=== PATIENT | male | born 1935 | race Caucasian/White ===

== ENCOUNTER 2018-12-18 16:03 | Inpatient (IN) | payer MEDICARE, BC | END 2018-12-23 12:27 | disposition home health service (06) | LOC: ER 16:03 → PCU 3S 12-19 07:30 → ED HOLD 20:53 | PROC: 0F798DZ Dilation of Common Bile Duct with Intraluminal Device, Via Natural or Artificial Opening Endoscopic (ICD-10-PCS; principal; 2018-12-19 13:55) | DX: K80.50 Calculus of bile duct without cholangitis or cholecystitis without obstruction (principal); I21.4 Non-ST elevation (NSTEMI) myocardial infarction ==

== ENCOUNTER 2019-06-16 20:38 | Inpatient (IN) | payer MEDICARE, BC ==
[~2019-06-16] VITALS: Ht 198.1 cm; Wt 100.0 kg
[~2019-06-16 20:38] MED LIST: ASPI-1071 PO; CLOP75TA15 PO; DIAZ5TAB4 PO; DOCU-28 PO; HYDR-3972 PO; INSU100I8 SQ; LANTUS SQ; LEVO200T8 PO; METF-438 PO; METO200T49 PO; OMEP20TA5 PO; TAMS0.4C32 PO; VENL75TA4 PO
[2019-06-16] MEDS ORDERED: normal saline 1000ml 1,000 ML IV ONE (20:44)
[2019-06-16] MEDS ORDERED: vancomycin/NS 1 GM ADD-VANTAGE 250 ML IV ONE (20:45)
[2019-06-16] MEDS ORDERED: ASPI-1264 PO (21:03)
[2019-06-16] MEDS ORDERED: METO-395 PO (21:11)
[2019-06-16] MEDS ORDERED: VENL75TA4 PO (21:11)
[2019-06-16] MEDS ORDERED: SYN0.088T PO ×2 (21:11→21:16)
[2019-06-16] MEDS ORDERED: ATOR40TA7 PO (21:14)
[2019-06-16 21:18] LABS: BASOPHILS % (AUTO) 0.9 % (0-1); EOSINOPHILS # (AUTO) 0.1 X10'3 (0-0.9); EOSINOPHILS % (AUTO) 1.9 % (0-6); HEMATOCRIT 25.3 % (42.0-52.0); HEMOGLOBIN 8.7 g/dl (14.0-17.9); LYMPHOCYTES # (AUTO) 1.1 X10'3 (1.1-4.8); LYMPHOCYTES % (AUTO) 19.9 % (21-51); MEAN CORPUSCULAR HEMOGLOBIN 28.3 PG (27.0-31.0); MEAN CORPUSCULAR HGB CONC 34.5 g/dL (33.0-36.5); MEAN CORPUSCULAR VOLUME 81.9 FL (78-98); MEAN PLATELET VOLUME 7.6 FL (7.4-10.4); MONOCYTES # (AUTO) 0.9 X10'3 (0-0.9); MONOCYTES % (AUTO) 16.6 % (2-12); NEUTROPHILS # (AUTO) 3.3 X10'3 (1.8-7.7); NEUTROPHILS % (AUTO) 60.7 % (42-75); PLATELET COUNT 222 X10'3 (140-440); RED BLOOD COUNT 3.09 X10'6 (4.70-6.10); RED CELL DISTRIBUTION WIDTH 16.7 % (11.5-14.5); WHITE BLOOD COUNT 5.5 X10'3 (4.5-11.0)
[2019-06-16 21:25] LABS: ALANINE AMINOTRANSFERASE 18 U/L (12-78); ALBUMIN 2.7 G/DL (3.4-5.0); ALBUMIN/GLOBULIN RATIO 0.6 (1.1-1.5); ALKALINE PHOSPHATASE 132 IU/L (46-116); ANION GAP 10 (8-16); ASPARTATE AMINO TRANSFERASE 15 U/L (10-37); BILIRUBIN,TOTAL 0.7 MG/DL (0.1-1.0); BLOOD UREA NITROGEN 18 MG/DL (7-18); BUN/CREATININE RATIO 19.4 (5.4-32.0); CALCIUM 8.7 MG/DL (8.5-10.1); CHLORIDE 103 MMOL/L (99-107); CREATININE 0.93 MG/DL (0.60-1.10); GLUCOSE 175 MG/DL (70-104); MAGNESIUM 1.9 MG/DL (1.5-2.4); POTASSIUM 3.7 MMOL/L (3.5-5.1); SODIUM 136 MMOL/L (135-145); TOTAL CARBON DIOXIDE 23.2 MMOL/L (24-32); TOTAL PROTEIN 7.1 G/DL (6.4-8.2); eGFR 78 ML/MIN
[2019-06-16 21:28] LABS: D-DIMER 0.77 MG/L FEU (0-0.50); PARTIAL THROMBOPLASTIN TIME 32 SECONDS (22-32)
[2019-06-16] MEDS ORDERED: normal saline 1000ML IV soln IVB ONE (21:50)
--- NOTE | 2019-06-16 21:57 | NUR ---
public health sanitarian technician at bedside.
[2019-06-16] MEDS: normal saline 1000ml 1,000 ML IV SCH (22:41)
[2019-06-16] MEDS ORDERED: magnesium hydroxide 30ml (MOM) UD suspension PO PRN (22:45)
[2019-06-16] MEDS ORDERED: ondansetron/PF 4mg/2ml inj IV PRN (22:45)
[2019-06-16] MEDS ORDERED: glucagon, human recombinant 1mg kit SUBCUT PRN (22:45)
[2019-06-16] MEDS ORDERED: dextrose 50%-water 50ml dispensing syringe IV PRN ×2 (22:45)
[2019-06-16] MEDS ORDERED: dextrose ORAL solution 15 GM/59 ML bottle PO PRN ×2 (22:45)
[2019-06-16] MEDS ORDERED: HYDROcodone/acetaminophen 10/325mg tab PO PRN (22:45)
[2019-06-16] MEDS ORDERED: acetaminophen 325mg tablet PO PRN ×2 (22:45)
[2019-06-16] MEDS ORDERED: insulin Lispro (HumaLOG) vial - multi-dose SQ SCH (22:45)
[2019-06-16] MEDS ORDERED: mag hydrox/Alum hydrox/simeth 30ml oral suspension PO PRN (22:45)
[2019-06-16] MEDS ORDERED: MESSAGE TO PHARMACY PO ONE (22:45)
[2019-06-16 23:11] LABS: HEMOGLOBIN A1C 5.8 % (4.5-6.2)
[2019-06-16] MEDS: CefTRIAXone/D5W-Rocephin 1gm 50 ML IV SCH ×2 (23:15→23:16)
[2019-06-17] VITALS: BP 129/71
[2019-06-17] MEDS: HYDROcodone/acetaminophen 5mg/325mg tablet PO PRN ×2 (00:11→12:46)
[2019-06-17] MEDS: CefTRIAXone/D5W-Rocephin 1gm 50 ML IV SCH (00:15)
[2019-06-17 05:56] LABS: EOSINOPHILS # (AUTO) 0.1 X10'3 (0-0.9); EOSINOPHILS % (AUTO) 2.3 % (0-6); HEMOGLOBIN 7.6 g/dl (14.0-17.9); LYMPHOCYTES # (AUTO) 0.8 X10'3 (1.1-4.8); LYMPHOCYTES % (AUTO) 16.7 % (21-51); MEAN CORPUSCULAR HEMOGLOBIN 28.7 PG (27.0-31.0); MEAN CORPUSCULAR HGB CONC 34.8 g/dL (33.0-36.5); MEAN CORPUSCULAR VOLUME 82.3 FL (78-98); MEAN PLATELET VOLUME 7.5 FL (7.4-10.4); MONOCYTES # (AUTO) 0.7 X10'3 (0-0.9); MONOCYTES % (AUTO) 14.9 % (2-12); NEUTROPHILS % (AUTO) 65.1 % (42-75); PLATELET COUNT 189 X10'3 (140-440); RED BLOOD COUNT 2.67 X10'6 (4.70-6.10); RED CELL DISTRIBUTION WIDTH 16.6 % (11.5-14.5); WHITE BLOOD COUNT 4.6 X10'3 (4.5-11.0)
[2019-06-17 06:00] VITALS: BP 124/64
--- NOTE | 2019-06-17 06:00 | NUR ---
Patient in room BILL 354. I have received report from Karly LABOY and had the opportunity to ask questions and assume patient care.
[2019-06-17 06:15] LABS: ALBUMIN 2.3 G/DL (3.4-5.0); ANION GAP 12 (8-16); BLOOD UREA NITROGEN 16 MG/DL (7-18); BUN/CREATININE RATIO 20.5 (5.4-32.0); CHLORIDE 106 MMOL/L (99-107); CREATININE 0.78 MG/DL (0.60-1.10); GLUCOSE 121 MG/DL (70-104); POTASSIUM 3.4 MMOL/L (3.5-5.1); SODIUM 140 MMOL/L (135-145); TOTAL CARBON DIOXIDE 21.7 MMOL/L (24-32); eGFR > 90 ML/MIN
[2019-06-17] MEDS: metoprolol succinate 25mg (24-HOUR) SR. Tablet PO SCH (07:58)
[2019-06-17] MEDS: metFORMIN 500mg tablet PO SCH ×2 (07:58→20:04)
[2019-06-17] MEDS: levoTHYROXINE 75mcg tablet PO SCH (07:59)
[2019-06-17] MEDS: pantoprazole 40mg Tablet.DR PO SCH ×2 (07:59→20:04)
[2019-06-17] MEDS: enoxaparin 30mg/0.3ml syringe SUBCUT SCH ×2 (08:00→12:43)
[2019-06-17] MEDS: clopidogrel 75mg tablet PO SCH ×2 (08:00→12:42)
[2019-06-17] MEDS: aspirin 325mg tablet PO SCH ×2 (08:00→12:42)
[2019-06-17] MEDS: VANCOmycin 1250MG/NS 250ml Bag 250 ML IV SCH ×2 (08:00→19:49)
[2019-06-17] MEDS: normal saline 1000ml 1,000 ML IV SCH ×2 (08:41→18:42)
[2019-06-17] MEDS: venlafaxine 37.5mg tablet PO SCH ×2 (09:55→20:04)
--- NOTE | 2019-06-17 10:07 | NUR ---
Meds held D/T Hct 22.0 Dr Talley was notified.
[2019-06-17] MEDS ORDERED: magnesium 4gm in 100ml NS 100 ML IV PRN (11:00)
[2019-06-17] MEDS ORDERED: potassium Cl 20 mEq SR tablet PO PRN (11:00)
[2019-06-17] MEDS ORDERED: potassium CL 10mEq/100ml bag 100 ML IV PRN (11:00)
[2019-06-17] MEDS ORDERED: magnesium Cl slow-release 64mg tablet PO PRN (11:00)
[2019-06-17] MEDS ORDERED: magnesium 2GM in 50ml NS 50 ML IV PRN (11:00)
[2019-06-17 11:18] VITALS: BP 137/71
[2019-06-17] MEDS: potassium Cl 20 mEq SR tablet PO PRN (14:30)
--- NOTE | 2019-06-17 18:26 | NUR ---
Problems reprioritized. Patient report given, questions answered & plan of care reviewed with Prudence RN.
--- NOTE | 2019-06-17 18:35 | NUR ---
Patient in room BILL 354. I have received report from García LABOY and had the opportunity to ask questions and assume patient care.
[2019-06-17 19:00] VITALS: BP 115/57
[2019-06-17] MEDS: lactobacillus rhamnosus 10,000 MMU CELLS/CAPSULE PO SCH (19:52)
[2019-06-17] MEDS ORDERED: insulin glargine (Lantus) pen - multi-dose SQ SCH (21:00)
[2019-06-17] MEDS: insulin glargine (Lantus) pen - multi-dose SQ SCH (21:00)
[2019-06-17] MEDS: tamsulosin 0.4mg capsule PO SCH (21:19)
[2019-06-17] MEDS: atorvastatin 20mg tablet PO SCH (21:20)
[2019-06-17] MEDS: diazepam 5mg tablet PO PRN (21:20)
[2019-06-17] MEDS: HYDROcodone/acetaminophen 10/325mg tab PO PRN (21:21)
[2019-06-18] VITALS: BP 126/62
[2019-06-18] MEDS: potassium Cl 20 mEq SR tablet PO PRN (00:31)
[2019-06-18] MEDS: HYDROcodone/acetaminophen 5mg/325mg tablet PO PRN ×2 (03:31→19:26)
[2019-06-18 05:10] LABS: ALBUMIN 2.2 G/DL (3.4-5.0); ANION GAP 11 (8-16); BLOOD UREA NITROGEN 12 MG/DL (7-18); BUN/CREATININE RATIO 15.6 (5.4-32.0); CHLORIDE 108 MMOL/L (99-107); CREATININE 0.77 MG/DL (0.60-1.10); GLUCOSE 116 MG/DL (70-104); POTASSIUM 3.7 MMOL/L (3.5-5.1); SODIUM 140 MMOL/L (135-145); TOTAL CARBON DIOXIDE 21.2 MMOL/L (24-32); eGFR > 90 ML/MIN
[2019-06-18] MEDS: normal saline 1000ml 1,000 ML IV SCH ×3 (05:25→17:01)
--- NOTE | 2019-06-18 06:36 | NUR ---
Problems reprioritized. Patient report given, questions answered & plan of care reviewed with García RN.Patient is resting and shows no sign of distress.
[2019-06-18 06:44] LABS: BASOPHILS # (AUTO) 0.1 X10'3 (0-0.2); BASOPHILS % (AUTO) 1.4 % (0-1); EOSINOPHILS # (AUTO) 0.1 X10'3 (0-0.9); EOSINOPHILS % (AUTO) 2.2 % (0-6); HEMOGLOBIN 7.2 g/dl (14.0-17.9); LYMPHOCYTES # (AUTO) 0.7 X10'3 (1.1-4.8); LYMPHOCYTES % (AUTO) 18.8 % (21-51); MEAN CORPUSCULAR HEMOGLOBIN 27.8 PG (27.0-31.0); MEAN CORPUSCULAR HGB CONC 33.4 g/dL (33.0-36.5); MEAN CORPUSCULAR VOLUME 83.4 FL (78-98); MEAN PLATELET VOLUME 7.8 FL (7.4-10.4); MONOCYTES # (AUTO) 0.5 X10'3 (0-0.9); MONOCYTES % (AUTO) 12.2 % (2-12); NEUTROPHILS # (AUTO) 2.6 X10'3 (1.8-7.7); NEUTROPHILS % (AUTO) 65.4 % (42-75); PLATELET COUNT 195 X10'3 (140-440); RED CELL DISTRIBUTION WIDTH 16.9 % (11.5-14.5); WHITE BLOOD COUNT 3.9 X10'3 (4.5-11.0)
[2019-06-18 06:59] LABS: HEMATOCRIT 21.7 % (42.0-52.0)
--- NOTE | 2019-06-18 07:06 | NUR ---
Patient in room BILL 354. I have received report from Marcelle LABOY and had the opportunity to ask questions and assume patient care.
[2019-06-18] MEDS: aspirin 325mg tablet PO SCH (07:22)
[2019-06-18] MEDS: clopidogrel 75mg tablet PO SCH (07:22)
[2019-06-18] MEDS: levoTHYROXINE 75mcg tablet PO SCH (07:22)
[2019-06-18] MEDS: lactobacillus rhamnosus 10,000 MMU CELLS/CAPSULE PO SCH ×2 (07:22→19:27)
[2019-06-18] MEDS: metFORMIN 500mg tablet PO SCH ×2 (07:22→19:27)
[2019-06-18] MEDS: metoprolol succinate 25mg (24-HOUR) SR. Tablet PO SCH (07:23)
[2019-06-18] MEDS: CefTRIAXone/D5W-Rocephin 1gm 50 ML IV SCH (07:23)
[2019-06-18] MEDS: enoxaparin 30mg/0.3ml syringe SUBCUT SCH (07:24)
[2019-06-18] MEDS: pantoprazole 40mg Tablet.DR PO SCH ×2 (07:41→19:27)
[2019-06-18] MEDS: venlafaxine 37.5mg tablet PO SCH ×2 (07:42→19:26)
[2019-06-18 07:55] VITALS: BP 122/63
[2019-06-18] MEDS: VANCOmycin 1250MG/NS 250ml Bag 250 ML IV SCH ×2 (09:29→16:53)
[2019-06-18 12:40] VITALS: BP 141/77
--- NOTE | 2019-06-18 18:07 | NUR ---
PATIENT C/O URINARY RETENTION AND BLADDER DISCOMFORT. PATIENT ABLE TO VOID 100ML BUT BLADDER SCAN SHOWED 579ML POST VOID RESIDUAL. DR PATEL NOTIFIED AND RECEIVED ORDER TO STRAIGHT CATH. BENOIT CURRY AWARE AND WILL BE PERFORMING PROCEDURE.
[2019-06-18] MEDS: diazepam 5mg tablet PO PRN (18:13)
--- NOTE | 2019-06-18 18:17 | NUR ---
Problems reprioritized. Patient report given, questions answered & plan of care reviewed with Prudence RN.
--- NOTE | 2019-06-18 18:55 | NUR ---
Patient in room BILL 354. I have received report from García LABOY and had the opportunity to ask questions and assume patient care.
[2019-06-18 19:00] VITALS: BP 142/78
--- NOTE | 2019-06-18 19:29 | NUR ---
Informed at change of shift that the patient had 500+ in bladder per bladder scan. Attempted to straight cath at this time but patient refused until valium given and "kicked in". Returned and patient had urinated 175 ml in urinal. Straight catheterized using sterile technique resulted in 700 ml out. Will continue to monitor.
[2019-06-18] MEDS ORDERED: VANCOMYCIN LEVEL IV ONE (19:30)
[2019-06-18] MEDS: insulin glargine (Lantus) pen - multi-dose SQ SCH (21:00)
[2019-06-18] MEDS: atorvastatin 20mg tablet PO SCH (21:08)
[2019-06-18] MEDS: tamsulosin 0.4mg capsule PO SCH (21:09)
[2019-06-19] VITALS (8 sets, daily range): BP systolic 116–143; BP diastolic 68–79
[2019-06-19] MEDS: VANCOmycin 1250MG/NS 250ml Bag 250 ML IV SCH (00:12)
[2019-06-19] MEDS: normal saline 1000ml 1,000 ML IV SCH ×2 (05:08→16:55)
--- NOTE | 2019-06-19 06:34 | NUR ---
Problems reprioritized. Patient report given, questions answered & plan of care reviewed with Graciela LABOY.
[2019-06-19] MEDS ORDERED: VANCOMYCIN LEVEL IV ONE (07:30)
[2019-06-19 07:46] LABS: BASOPHILS % (AUTO) 0.8 % (0-1); EOSINOPHILS # (AUTO) 0.1 X10'3 (0-0.9); LYMPHOCYTES # (AUTO) 0.8 X10'3 (1.1-4.8); LYMPHOCYTES % (AUTO) 23.5 % (21-51); MEAN CORPUSCULAR VOLUME 82.3 FL (78-98); MEAN PLATELET VOLUME 7.4 FL (7.4-10.4); MONOCYTES # (AUTO) 0.3 X10'3 (0-0.9); MONOCYTES % (AUTO) 10.2 % (2-12); NEUTROPHILS # (AUTO) 2.1 X10'3 (1.8-7.7); NEUTROPHILS % (AUTO) 63.5 % (42-75); PLATELET COUNT 200 X10'3 (140-440); RED BLOOD COUNT 2.48 X10'6 (4.70-6.10); RED CELL DISTRIBUTION WIDTH 16.3 % (11.5-14.5); WHITE BLOOD COUNT 3.4 X10'3 (4.5-11.0)
[2019-06-19 07:56] LABS: HEMOGLOBIN 6.9 g/dl (14.0-17.9)
[2019-06-19 07:57] LABS: HEMATOCRIT 20.4 % (42.0-52.0)
--- NOTE | 2019-06-19 08:05 | NUR ---
H&H 6.9 AND 20.4. PAGE SENT TO DR PATEL. AWAITING ORDERS.
[2019-06-19] MEDS: CefTRIAXone/D5W-Rocephin 1gm 50 ML IV SCH (08:18)
[2019-06-19 08:25] LABS: ALBUMIN 2.2 G/DL (3.4-5.0); ANION GAP 12 (8-16); BLOOD UREA NITROGEN 7 MG/DL (7-18); BUN/CREATININE RATIO 9.2 (5.4-32.0); CHLORIDE 108 MMOL/L (99-107); CREATININE 0.76 MG/DL (0.60-1.10); GLUCOSE 161 MG/DL (70-104); POTASSIUM 3.5 MMOL/L (3.5-5.1); SODIUM 141 MMOL/L (135-145); TOTAL CARBON DIOXIDE 21.3 MMOL/L (24-32); eGFR > 90 ML/MIN
[2019-06-19 08:47] LABS: VANCOMYCIN,TROUGH 22.2 UG/ML (6.0-14.0)
--- NOTE | 2019-06-19 08:48 | NUR ---
1 unit of blood ordered by Dr Talley
--- NOTE | 2019-06-19 08:49 | NUR ---
Randolpho trough high at 22.2. [facility]ardo [facility] notified and says it's not "too" high so go ahead and give this dose and he will retime the next dose.
[2019-06-19] MEDS: clopidogrel 75mg tablet PO SCH (09:18)
[2019-06-19] MEDS: levoTHYROXINE 75mcg tablet PO SCH (09:18)
[2019-06-19] MEDS: venlafaxine 37.5mg tablet PO SCH ×2 (09:19→20:49)
[2019-06-19] MEDS: pantoprazole 40mg Tablet.DR PO SCH ×2 (09:20→20:50)
[2019-06-19] MEDS: lactobacillus rhamnosus 10,000 MMU CELLS/CAPSULE PO SCH ×2 (09:20→20:50)
[2019-06-19] MEDS: metFORMIN 500mg tablet PO SCH ×2 (09:21→20:50)
[2019-06-19] MEDS: metoprolol succinate 25mg (24-HOUR) SR. Tablet PO SCH (09:21)
[2019-06-19] MEDS: aspirin 325mg tablet PO SCH (09:21)
[2019-06-19] MEDS: enoxaparin 30mg/0.3ml syringe SUBCUT SCH (09:27)
--- NOTE | 2019-06-19 12:12 | NUR ---
DENISE yousif RE: protein shake for pt. Pt noted to have infected foot cellulitis. Hx DM A1C <7. Gluchermelinda JONES added pending MD verification prior to sending w/ meals. BENOIT notified. Addendum: 06/19/19 at [address] Amended: Links added.
[2019-06-19] MEDS: HYDROcodone/acetaminophen 5mg/325mg tablet PO PRN ×2 (12:24→16:48)
[2019-06-19] MEDS ORDERED: NUT.TX.GLUC.INTOLER,LAC-FR,SOY (GLUCERNA) 237 ML PO SCH (13:00)
[2019-06-19] MEDS: vancomycin/NS 1 GM ADD-VANTAGE 250 ML IV SCH (16:58)
--- NOTE | 2019-06-19 18:49 | NUR ---
Problems reprioritized. Patient report given, questions answered & plan of care reviewed with Pat RN.
[2019-06-19] MEDS: HYDROcodone/acetaminophen 10/325mg tab PO PRN (20:48)
[2019-06-19] MEDS: tamsulosin 0.4mg capsule PO SCH (20:49)
[2019-06-19] MEDS: atorvastatin 20mg tablet PO SCH (20:49)
[2019-06-19] MEDS: diazepam 5mg tablet PO PRN (20:56)
[2019-06-19] MEDS: insulin glargine (Lantus) pen - multi-dose SQ SCH (22:21)
[2019-06-20] VITALS: BP 116/68
[2019-06-20] MEDS: vancomycin/NS 1 GM ADD-VANTAGE 250 ML IV SCH ×2 (00:21→08:50)
[2019-06-20 01:49] LABS: OCCULT BLOOD STOOL NEGATIVE (Neg)
[2019-06-20] MEDS: HYDROcodone/acetaminophen 10/325mg tab PO PRN (04:01)
[2019-06-20 06:31] LABS: BASOPHILS % (AUTO) 0.8 % (0-1); EOSINOPHILS # (AUTO) 0.1 X10'3 (0-0.9); EOSINOPHILS % (AUTO) 2.2 % (0-6); HEMATOCRIT 23.4 % (42.0-52.0); LYMPHOCYTES # (AUTO) 0.7 X10'3 (1.1-4.8); LYMPHOCYTES % (AUTO) 18.7 % (21-51); MEAN CORPUSCULAR HGB CONC 34.1 g/dL (33.0-36.5); MEAN CORPUSCULAR VOLUME 82.2 FL (78-98); MEAN PLATELET VOLUME 7.4 FL (7.4-10.4); MONOCYTES # (AUTO) 0.3 X10'3 (0-0.9); MONOCYTES % (AUTO) 8.7 % (2-12); NEUTROPHILS # (AUTO) 2.7 X10'3 (1.8-7.7); NEUTROPHILS % (AUTO) 69.6 % (42-75); PLATELET COUNT 199 X10'3 (140-440); RED BLOOD COUNT 2.85 X10'6 (4.70-6.10); RED CELL DISTRIBUTION WIDTH 16.9 % (11.5-14.5); WHITE BLOOD COUNT 3.9 X10'3 (4.5-11.0)
[2019-06-20 06:45] LABS: ALBUMIN 2.3 G/DL (3.4-5.0); ANION GAP 12 (8-16); BLOOD UREA NITROGEN 8 MG/DL (7-18); BUN/CREATININE RATIO 11.4 (5.4-32.0); CHLORIDE 108 MMOL/L (99-107); GLUCOSE 148 MG/DL (70-104); POTASSIUM 3.3 MMOL/L (3.5-5.1); SODIUM 141 MMOL/L (135-145); TOTAL CARBON DIOXIDE 20.8 MMOL/L (24-32); eGFR > 90 ML/MIN
[2019-06-20] MEDS: normal saline 1000ml 1,000 ML IV SCH (08:06)
[2019-06-20] MEDS: CefTRIAXone/D5W-Rocephin 1gm 50 ML IV SCH (08:07)
[2019-06-20] MEDS: clopidogrel 75mg tablet PO SCH (08:10)
[2019-06-20] MEDS: levoTHYROXINE 75mcg tablet PO SCH (08:10)
[2019-06-20] MEDS: pantoprazole 40mg Tablet.DR PO SCH (08:10)
[2019-06-20] MEDS: lactobacillus rhamnosus 10,000 MMU CELLS/CAPSULE PO SCH (08:10)
[2019-06-20] MEDS: metoprolol succinate 25mg (24-HOUR) SR. Tablet PO SCH (08:10)
[2019-06-20] MEDS: aspirin 325mg tablet PO SCH (08:10)
[2019-06-20] MEDS: metFORMIN 500mg tablet PO SCH (08:10)
[2019-06-20] MEDS: venlafaxine 37.5mg tablet PO SCH (08:12)
[2019-06-20 08:16] VITALS: BP 125/72
[2019-06-20] MEDS ORDERED: CLIN150C2 PO (11:05)
--- NOTE | 2019-06-20 14:21 | NUR ---
All belongings home with . Addendum: 06/20/19 at 1422 by Komal Wayne RN Amended: Links added.
[2019-06-20] MEDS ORDERED: VANCOMYCIN LEVEL IV ONE (15:30)
--- NOTE | 2019-06-20 16:49 | NUR ---
Pt seen by DENISE for written/verbal high protein ed w/ RD contact information provided. Pt reports no nutrition concerns at this time. Addendum: 06/20/19 at [address] Amended: Links added.
== END 2019-06-20 13:59 | disposition home health service (06) | DRG 602 ==
LOC: ER 20:38 → SUR 3N 23:40
PROVIDERS: ADMIT Hospitalist; ATTEND Family Medicine
PROC: 30233N1 Transfusion of Nonautologous Red Blood Cells into Peripheral Vein, Percutaneous Approach (ICD-10-PCS; principal; 2019-06-19)
DX: L03.115 Cellulitis of right lower limb (principal); E43 Unspecified severe protein-calorie malnutrition; E11.621 Type 2 diabetes mellitus with foot ulcer; L97.519 Non-pressure chronic ulcer of other part of right foot with unspecified severity; E11.51 Type 2 diabetes mellitus with diabetic peripheral angiopathy without gangrene; E78.00 Pure hypercholesterolemia, unspecified; Z96.643 Presence of artificial hip joint, bilateral; Z96.653 Presence of artificial knee joint, bilateral; D63.8 Anemia in other chronic diseases classified elsewhere; I25.10 Atherosclerotic heart disease of native coronary artery without angina pectoris; L03.031 Cellulitis of right toe; Z88.6 Allergy status to analgesic agent; Z68.25 Body mass index [BMI] 25.0-25.9, adult; Z79.82 Long term (current) use of aspirin; Z79.84 Long term (current) use of oral hypoglycemic drugs; Z79.899 Other long term (current) drug therapy; I69.398 Other sequelae of cerebral infarction
CPT/HCPCS: 36415; 73620; 80048; 80053; 80202; 82272; 82948; 83036; 83605; 83735; 84443; 85025; 85379; 85610; 85651; 85730; 86870; 86885; 86900; 86901; 86922; 87040; 87081; 93005; 93922; 93925; 96361; 96365; 96366; 99285; G0378; J0696; J1650; J1815; J3370; J7030; P9016

== ENCOUNTER 2019-10-01 13:52 | Inpatient (IN) | payer MEDICARE, BC ==
[~2019-10-01] VITALS: Ht 198.1 cm; Wt 109.0 kg
[~2019-10-01 13:52] MED LIST changes: -ASPI-1071 PO; +ASPI-1264 PO; +ATOR40TA7 PO; -DOCU-28 PO; -LEVO200T8 PO; +METO-395 PO; -METO200T49 PO; +SYN0.088T PO
[2019-10-01 15:46] LABS: BASOPHILS % (AUTO) 0.5 % (0-1); EOSINOPHILS # (AUTO) 0.1 X10'3 (0-0.9); EOSINOPHILS % (AUTO) 1.7 % (0-6); HEMATOCRIT 25.3 % (42.0-52.0); HEMOGLOBIN 8.6 g/dl (14.0-17.9); LYMPHOCYTES # (AUTO) 0.9 X10'3 (1.1-4.8); LYMPHOCYTES % (AUTO) 12.5 % (21-51); MEAN CORPUSCULAR HEMOGLOBIN 28.2 PG (27.0-31.0); MEAN CORPUSCULAR HGB CONC 34.1 g/dL (33.0-36.5); MEAN CORPUSCULAR VOLUME 82.8 FL (78-98); MEAN PLATELET VOLUME 7.6 FL (7.4-10.4); MONOCYTES # (AUTO) 0.8 X10'3 (0-0.9); MONOCYTES % (AUTO) 10.8 % (2-12); NEUTROPHILS # (AUTO) 5.5 X10'3 (1.8-7.7); NEUTROPHILS % (AUTO) 74.5 % (42-75); PLATELET COUNT 223 X10'3 (140-440); RED BLOOD COUNT 3.06 X10'6 (4.70-6.10); WHITE BLOOD COUNT 7.4 X10'3 (4.5-11.0)
[2019-10-01 15:56] LABS: ALANINE AMINOTRANSFERASE 6 U/L (12-78); ALBUMIN 2.9 G/DL (3.4-5.0); ALBUMIN/GLOBULIN RATIO 0.7 (1.1-1.5); ALKALINE PHOSPHATASE 129 IU/L (46-116); ANION GAP 14 (8-16); ASPARTATE AMINO TRANSFERASE 9 U/L (10-37); BILIRUBIN,TOTAL 0.5 MG/DL (0.1-1.0); BLOOD UREA NITROGEN 16 MG/DL (7-18); BUN/CREATININE RATIO 14.8 (5.4-32.0); CALCIUM 8.6 MG/DL (8.5-10.1); CHLORIDE 101 MMOL/L (99-107); CREATININE 1.08 MG/DL (0.60-1.10); GLUCOSE 152 MG/DL (70-104); POTASSIUM 4.1 MMOL/L (3.5-5.1); SODIUM 137 MMOL/L (135-145); TOTAL CARBON DIOXIDE 21.7 MMOL/L (24-32); TOTAL PROTEIN 6.8 G/DL (6.4-8.2); eGFR 66 ML/MIN
[2019-10-01] MEDS ORDERED: normal saline 1000ML IV soln IVB ONE (16:20)
[2019-10-01] MEDS ORDERED: vancomycin/NS 1 GM ADD-VANTAGE 250 ML IV ONE (16:30)
[2019-10-01] MEDS ORDERED: CefTRIAXone/D5W-Rocephin 1gm 50 ML IV ONE (16:30)
[2019-10-01] MEDS ORDERED: potassium CL 10mEq/100ml bag 100 ML IV PRN ×2 (16:45)
[2019-10-01] MEDS ORDERED: magnesium hydroxide 30ml (MOM) UD suspension PO PRN (16:45)
[2019-10-01] MEDS ORDERED: glucagon, human recombinant 1mg kit SUBCUT PRN (16:45)
[2019-10-01] MEDS ORDERED: dextrose 50%-water 50ml dispensing syringe IV PRN ×2 (16:45)
[2019-10-01] MEDS ORDERED: mag hydrox/Alum hydrox/simeth 30ml oral suspension PO PRN (16:45)
[2019-10-01] MEDS ORDERED: potassium Cl 20 mEq SR tablet PO PRN ×2 (16:45)
[2019-10-01] MEDS ORDERED: HYDROmorphone 1 mg/ml syringe IV PRN (16:45)
[2019-10-01] MEDS ORDERED: diphenhydrAMINE 25mg capsule PO PRN (16:45)
[2019-10-01] MEDS ORDERED: MESSAGE TO PHARMACY PO ONE (16:45)
[2019-10-01] MEDS ORDERED: bisacodyl 10mg suppository rectal RC PRN (16:45)
[2019-10-01] MEDS ORDERED: diphenhydrAMINE 50 mg/ml inj IV PRN (16:45)
[2019-10-01] MEDS ORDERED: dextrose ORAL solution 15 GM/59 ML bottle PO PRN ×2 (16:45)
[2019-10-01] MEDS ORDERED: metoclopramide 5 mg/ml inj IV PRN (16:45)
[2019-10-01] MEDS ORDERED: acetaminophen 650mg rectal suppository RC PRN (16:45)
[2019-10-01 17:01] LABS: C-REACTIVE PROTEIN 5.76 MG/DL (0.0-0.5)
[2019-10-01 17:10] LABS: HEMOGLOBIN A1C 6.1 % (4.5-6.2)
[2019-10-01 17:15] LABS: PHOSPHORUS 3.5 MG/DL (2.3-4.5)
[2019-10-01] MEDS: normal saline 1000ml 1,000 ML IV SCH (17:19)
--- NOTE | 2019-10-01 18:30 | NUR ---
Patient in room ED 7. received report from Moe LABOY. had the opportunity to ask questions, assumed care of patient.
[2019-10-01 19:00] VITALS: BP 156/71
[2019-10-01] MEDS ORDERED: temazepam 15mg capsule PO PRN (21:00)
[2019-10-01] MEDS: insulin glargine (Lantus) pen - multi-dose SQ SCH (21:00)
[2019-10-01] MEDS: venlafaxine 37.5mg tablet PO SCH (21:02)
[2019-10-01] MEDS: HYDROcodone/acetaminophen 5mg/325mg tablet PO PRN (21:05)
[2019-10-01] MEDS: ondansetron/PF 4mg/2ml inj IV PRN (21:14)
[2019-10-01 22:00] VITALS: BP 140/71
[2019-10-01] MEDS: acetaminophen 325mg tablet PO PRN (22:00)
[2019-10-02] MEDS: normal saline 1000ml 1,000 ML IV SCH ×3 (03:18→22:59)
[2019-10-02 05:28] LABS: BASOPHILS % (AUTO) 0.3 % (0-1); EOSINOPHILS # (AUTO) 0.1 X10'3 (0-0.9); EOSINOPHILS % (AUTO) 1.6 % (0-6); HEMATOCRIT 24.6 % (42.0-52.0); HEMOGLOBIN 8.5 g/dl (14.0-17.9); LYMPHOCYTES # (AUTO) 0.6 X10'3 (1.1-4.8); LYMPHOCYTES % (AUTO) 8.1 % (21-51); MEAN CORPUSCULAR HEMOGLOBIN 28.3 PG (27.0-31.0); MEAN CORPUSCULAR HGB CONC 34.5 g/dL (33.0-36.5); MEAN CORPUSCULAR VOLUME 82.1 FL (78-98); MEAN PLATELET VOLUME 7.8 FL (7.4-10.4); MONOCYTES # (AUTO) 1.2 X10'3 (0-0.9); MONOCYTES % (AUTO) 17.4 % (2-12); NEUTROPHILS # (AUTO) 5.2 X10'3 (1.8-7.7); NEUTROPHILS % (AUTO) 72.6 % (42-75); PLATELET COUNT 196 X10'3 (140-440); WHITE BLOOD COUNT 7.1 X10'3 (4.5-11.0)
[2019-10-02 05:41] LABS: ALBUMIN 2.7 G/DL (3.4-5.0); ANION GAP 12 (8-16); BILIRUBIN,TOTAL 0.7 MG/DL (0.1-1.0); BLOOD UREA NITROGEN 11 MG/DL (7-18); BUN/CREATININE RATIO 12.4 (5.4-32.0); CALCIUM 8.5 MG/DL (8.5-10.1); CHLORIDE 103 MMOL/L (99-107); CREATININE 0.89 MG/DL (0.60-1.10); GLUCOSE 171 MG/DL (70-104); POTASSIUM 3.7 MMOL/L (3.5-5.1); SODIUM 137 MMOL/L (135-145); TOTAL CARBON DIOXIDE 22.4 MMOL/L (24-32); TOTAL PROTEIN 6.5 G/DL (6.4-8.2); eGFR 82 ML/MIN
[2019-10-02 05:42] LABS: ALANINE AMINOTRANSFERASE 9 U/L (12-78); ALBUMIN/GLOBULIN RATIO 0.7 (1.1-1.5); ALKALINE PHOSPHATASE 113 IU/L (46-116); ASPARTATE AMINO TRANSFERASE 12 U/L (10-37); CHOL/HDL RATIO 1.9 (0.00-4.99); CHOLESTEROL 69 MG/DL (0-200); HDL CHOLESTEROL 36 MG/DL (35-60); LDL CHOLESTEROL 23 MG/DL (50-100); TRIGLYCERIDES 91 MG/DL (20-135)
[2019-10-02 06:00] VITALS: BP 129/69
--- NOTE | 2019-10-02 06:43 | NUR ---
gave report to Saida LABOY
[2019-10-02] MEDS: pantoprazole 40mg Tablet.DR PO SCH (07:30)
[2019-10-02] MEDS: venlafaxine 37.5mg tablet PO SCH ×2 (08:00→20:00)
[2019-10-02] MEDS: K and/or MAG REPLACEMENT MC SCH (08:00)
[2019-10-02] MEDS: clopidogrel 75mg tablet PO SCH (08:00)
[2019-10-02] MEDS ORDERED: CefTRIAXone/D5W-Rocephin 1gm 50 ML IV SCH (08:00)
[2019-10-02] MEDS: levoTHYROXINE 125mcg tablet PO SCH (08:00)
[2019-10-02] MEDS: metoprolol succinate 25mg (24-HOUR) SR. Tablet PO SCH (08:00)
[2019-10-02] MEDS: levoTHYROXINE 100mcg tablet PO SCH (08:00)
[2019-10-02] MEDS: ondansetron/PF 4mg/2ml inj IV PRN ×3 (08:17→21:23)
[2019-10-02] MEDS: HYDROcodone/acetaminophen 5mg/325mg tablet PO PRN (08:31)
[2019-10-02] MEDS: lactobacillus rhamnosus 10,000 MMU CELLS/CAPSULE PO SCH ×2 (09:15→20:00)
[2019-10-02 10:00] VITALS: BP 134/72
[2019-10-02] MEDS ORDERED: FLU VACC QS2019-20 36MOS UP/PF 60 MCG/0.5 ML SYRINGE IMVAC ONE (10:00)
[2019-10-02] MEDS ORDERED: pneumococcal 23-VAL P-sac vacc 25 mcg/0.5ml vial IMVAC ONE (10:00)
[2019-10-02] MEDS: HYDROmorphone inj. 0.5 MG/0.5 ML DISP.SYRIN IV PRN (10:38)
[2019-10-02] MEDS: acetaminophen 325mg tablet PO PRN ×2 (10:38→15:49)
--- NOTE | 2019-10-02 12:00 | NUR ---
DM Consult: Pt A1C <7 and not appropriate for DM ed at this time. Pt admit w/ R second toe cellulitis. possible osteomyelitis vs sepsis pending surgeon consult per MD note. Pt PO hx pending. DENISE d/w RN regarding MVI per MD approval for healing needs. Will monitor for further DX and additional protein needs this admit pending PO hx. Addendum: 10/02/19 at [address] Amended: Links added.
[2019-10-02] MEDS: insulin Lispro (HumaLOG) vial - multi-dose SQ SCH ×2 (14:12→18:29)
[2019-10-02 14:21] VITALS: BP 138/79
--- NOTE | 2019-10-02 14:24 | NUR ---
PAGER ID: [phone] MESSAGE: [id number] Ceasar Hughes Do you want to do a lactic on the patient? 138/79 HR 115 Temp 99.3 and tremulous. Saida [id number]
--- NOTE | 2019-10-02 14:59 | NUR ---
DR. AGUIAR PREFORMED BEDSIDE AMPUTATION, IRRIGATED AND WRAPPED TOE. Addendum: 10/02/19 at 1502 by Saida Morales RN Amended: Links added.
[2019-10-02 15:54] VITALS: BP 157/83
--- NOTE | 2019-10-02 15:59 | NUR ---
PAGER ID: [phone] MESSAGE: [id number] Gerardo Hughes Update N/V Temp 103.1 BP 157/83 HR 134 Saida [id number]
[2019-10-02] MEDS ORDERED: metoprolol succinate 25mg (24-HOUR) SR. Tablet PO ONE (16:15)
[2019-10-02] MEDS: piperacillin/tazo 3.375gm/50ml 50 ML IV SCH (16:35)
[2019-10-02 16:39] LABS: BASOPHILS % (AUTO) 0.6 % (0-1); EOSINOPHILS # (AUTO) 0.1 X10'3 (0-0.9); EOSINOPHILS % (AUTO) 1.5 % (0-6); HEMATOCRIT 25.7 % (42.0-52.0); HEMOGLOBIN 8.7 g/dl (14.0-17.9); LYMPHOCYTES # (AUTO) 0.5 X10'3 (1.1-4.8); MEAN CORPUSCULAR HEMOGLOBIN 27.6 PG (27.0-31.0); MEAN CORPUSCULAR HGB CONC 33.7 g/dL (33.0-36.5); MEAN CORPUSCULAR VOLUME 81.9 FL (78-98); MEAN PLATELET VOLUME 7.5 FL (7.4-10.4); MONOCYTES # (AUTO) 1.1 X10'3 (0-0.9); MONOCYTES % (AUTO) 17.1 % (2-12); NEUTROPHILS # (AUTO) 4.7 X10'3 (1.8-7.7); NEUTROPHILS % (AUTO) 72.8 % (42-75); PLATELET COUNT 192 X10'3 (140-440); RED BLOOD COUNT 3.14 X10'6 (4.70-6.10); RED CELL DISTRIBUTION WIDTH 17.9 % (11.5-14.5); WHITE BLOOD COUNT 6.4 X10'3 (4.5-11.0)
[2019-10-02 18:00] VITALS: BP 128/58
--- NOTE | 2019-10-02 18:00 | NUR ---
RECEIVED REPORT FROM CLEMENTINA LABOY AND ASSUMED PATIENT CARE
--- NOTE | 2019-10-02 18:21 | NUR ---
Problems reprioritized. Patient report given, questions answered & plan of care reviewed with ISIDORO LABOY.
[2019-10-02] MEDS: HYDROcodone/acetaminophen 10/325mg tab PO PRN (19:26)
[2019-10-02] MEDS: insulin glargine (Lantus) pen - multi-dose SQ SCH (21:23)
[2019-10-02 22:00] VITALS: BP 128/69
[2019-10-03] MEDS: piperacillin/tazo 3.375gm/50ml 50 ML IV SCH ×3 (00:02→16:43)
[2019-10-03] MEDS: acetaminophen 325mg tablet PO PRN ×2 (00:23→18:56)
[2019-10-03] MEDS ORDERED: VANCOMYCIN LEVEL IV ONE (04:30)
[2019-10-03 05:18] LABS: BASOPHILS % (AUTO) 0.6 % (0-1); EOSINOPHILS # (AUTO) 0.1 X10'3 (0-0.9); HEMATOCRIT 26.4 % (42.0-52.0); LYMPHOCYTES # (AUTO) 0.9 X10'3 (1.1-4.8); LYMPHOCYTES % (AUTO) 14.7 % (21-51); MEAN CORPUSCULAR HGB CONC 34.1 g/dL (33.0-36.5); MEAN CORPUSCULAR VOLUME 82.1 FL (78-98); MEAN PLATELET VOLUME 7.7 FL (7.4-10.4); MONOCYTES # (AUTO) 1.2 X10'3 (0-0.9); MONOCYTES % (AUTO) 19.3 % (2-12); NEUTROPHILS # (AUTO) 4.1 X10'3 (1.8-7.7); NEUTROPHILS % (AUTO) 63.4 % (42-75); PLATELET COUNT 228 X10'3 (140-440); RED BLOOD COUNT 3.22 X10'6 (4.70-6.10); RED CELL DISTRIBUTION WIDTH 18.2 % (11.5-14.5); WHITE BLOOD COUNT 6.4 X10'3 (4.5-11.0)
[2019-10-03 05:36] LABS: ALANINE AMINOTRANSFERASE 10 U/L (12-78); ALBUMIN 2.8 G/DL (3.4-5.0); ALBUMIN/GLOBULIN RATIO 0.7 (1.1-1.5); ALKALINE PHOSPHATASE 111 IU/L (46-116); ANION GAP 15 (8-16); ASPARTATE AMINO TRANSFERASE 12 U/L (10-37); BILIRUBIN,TOTAL 0.8 MG/DL (0.1-1.0); BLOOD UREA NITROGEN 11 MG/DL (7-18); BUN/CREATININE RATIO 10.3 (5.4-32.0); CALCIUM 8.8 MG/DL (8.5-10.1); CHLORIDE 103 MMOL/L (99-107); CREATININE 1.07 MG/DL (0.60-1.10); GLUCOSE 166 MG/DL (70-104); POTASSIUM 3.7 MMOL/L (3.5-5.1); SODIUM 140 MMOL/L (135-145); TOTAL CARBON DIOXIDE 21.6 MMOL/L (24-32); eGFR 66 ML/MIN
[2019-10-03 05:38] LABS: VANCOMYCIN,TROUGH 21.7 UG/ML (6.0-14.0)
[2019-10-03 05:54] LABS: ANISOCYTOSIS 2+; PLATELET ESTIMATE NORMAL; TOTAL CELLS COUNTED 100
[2019-10-03 06:00] VITALS: BP 134/70
[2019-10-03] MEDS: pantoprazole 40mg Tablet.DR PO SCH (07:30)
[2019-10-03] MEDS: K and/or MAG REPLACEMENT MC SCH (08:27)
[2019-10-03] MEDS: normal saline 1000ml 1,000 ML IV SCH ×2 (08:45→20:02)
[2019-10-03] MEDS: clopidogrel 75mg tablet PO SCH (09:05)
[2019-10-03] MEDS: metoprolol succinate 25mg (24-HOUR) SR. Tablet PO SCH (09:05)
[2019-10-03] MEDS: lactobacillus rhamnosus 10,000 MMU CELLS/CAPSULE PO SCH ×2 (09:06→20:04)
[2019-10-03] MEDS: levoTHYROXINE 100mcg tablet PO SCH (09:06)
[2019-10-03] MEDS: venlafaxine 37.5mg tablet PO SCH ×2 (09:06→20:04)
[2019-10-03] MEDS: levoTHYROXINE 125mcg tablet PO SCH (09:07)
[2019-10-03] MEDS: HYDROcodone/acetaminophen 10/325mg tab PO PRN (09:49)
[2019-10-03] MEDS: insulin Lispro (HumaLOG) vial - multi-dose SQ SCH ×3 (09:51→18:54)
[2019-10-03 10:20] VITALS: BP 125/61
[2019-10-03] MEDS: VANCOmycin 1250MG/NS 250ml Bag 250 ML IV SCH ×2 (13:09→20:59)
--- NOTE | 2019-10-03 13:48 | NUR ---
Problems reprioritized. Patient report given, questions answered & plan of care reviewed with Rebecca LABOY.
--- NOTE | 2019-10-03 14:04 | NUR ---
WOUND INFECTION EDUCATION PROVIDED BY WOUND CARE 1. Patient instructed to call their primary doctor, or go the ED immediately if any of the following symptoms occur: * Increased pain in wound * Increase in drainage from the wound * Redness in the skin surrounding the wound * Warmth in the skin surrounding the wound * Bleeding from the wound * Temperature of 101 or greater 2. If any of these occur while in the hospital tell a nurse immediately. Addendum: 10/03/19 at 1404 by Dafne Alvarado RN Amended: Links added.
[2019-10-03 18:00] VITALS: BP 127/65
[2019-10-03] MEDS: insulin glargine (Lantus) pen - multi-dose SQ SCH (21:02)
[2019-10-03 22:00] VITALS: BP 122/67
[2019-10-04] MEDS: piperacillin/tazo 3.375gm/50ml 50 ML IV SCH ×3 (00:09→09:55)
[2019-10-04] MEDS: HYDROcodone/acetaminophen 10/325mg tab PO PRN ×2 (03:50→09:54)
[2019-10-04] MEDS: VANCOmycin 1250MG/NS 250ml Bag 250 ML IV SCH (04:40)
[2019-10-04 06:00] VITALS: BP 123/72
--- NOTE | 2019-10-04 06:02 | NUR ---
REPORT GIVEN TO BENOIT INGRAM.
[2019-10-04 06:07] LABS: BASOPHILS % (AUTO) 0.9 % (0-1); EOSINOPHILS # (AUTO) 0.1 X10'3 (0-0.9); EOSINOPHILS % (AUTO) 3.4 % (0-6); LYMPHOCYTES # (AUTO) 0.9 X10'3 (1.1-4.8); LYMPHOCYTES % (AUTO) 21.9 % (21-51); MEAN CORPUSCULAR HEMOGLOBIN 28.2 PG (27.0-31.0); MEAN CORPUSCULAR HGB CONC 34.6 g/dL (33.0-36.5); MEAN CORPUSCULAR VOLUME 81.3 FL (78-98); MEAN PLATELET VOLUME 7.6 FL (7.4-10.4); MONOCYTES # (AUTO) 0.8 X10'3 (0-0.9); MONOCYTES % (AUTO) 19.1 % (2-12); NEUTROPHILS # (AUTO) 2.3 X10'3 (1.8-7.7); NEUTROPHILS % (AUTO) 54.7 % (42-75); PLATELET COUNT 186 X10'3 (140-440); RED CELL DISTRIBUTION WIDTH 17.8 % (11.5-14.5); WHITE BLOOD COUNT 4.3 X10'3 (4.5-11.0)
[2019-10-04 06:12] LABS: HEMATOCRIT 20.3 % (42.0-52.0)
[2019-10-04 06:16] LABS: ALANINE AMINOTRANSFERASE 11 U/L (12-78); ALBUMIN 2.4 G/DL (3.4-5.0); ALBUMIN/GLOBULIN RATIO 0.7 (1.1-1.5); ALKALINE PHOSPHATASE 91 IU/L (46-116); ANION GAP 11 (8-16); ASPARTATE AMINO TRANSFERASE 15 U/L (10-37); BILIRUBIN,TOTAL 0.6 MG/DL (0.1-1.0); CALCIUM 8.1 MG/DL (8.5-10.1); CHLORIDE 105 MMOL/L (99-107); CREATININE 0.86 MG/DL (0.60-1.10); GLUCOSE 175 MG/DL (70-104); POTASSIUM 3.5 MMOL/L (3.5-5.1); SODIUM 137 MMOL/L (135-145); TOTAL CARBON DIOXIDE 21.3 MMOL/L (24-32); eGFR 85 ML/MIN
[2019-10-04 06:28] LABS: BLOOD UREA NITROGEN 13 MG/DL (7-18); BUN/CREATININE RATIO 15.1 (5.4-32.0)
[2019-10-04 06:49] LABS: PLATELET ESTIMATE NORMAL
[2019-10-04 06:50] LABS: ANISOCYTOSIS 1+
[2019-10-04] MEDS: K and/or MAG REPLACEMENT MC SCH (08:00)
[2019-10-04] MEDS: insulin Lispro (HumaLOG) vial - multi-dose SQ SCH ×3 (09:52→19:20)
[2019-10-04 10:00] VITALS: BP 126/67
[2019-10-04] MEDS: normal saline 1000ml 1,000 ML IV SCH ×2 (10:00→14:45)
[2019-10-04] MEDS: pantoprazole 40mg Tablet.DR PO SCH (10:00)
[2019-10-04] MEDS: clopidogrel 75mg tablet PO SCH (10:01)
[2019-10-04] MEDS: venlafaxine 37.5mg tablet PO SCH ×2 (10:01→20:26)
[2019-10-04] MEDS: levoTHYROXINE 100mcg tablet PO SCH (10:01)
[2019-10-04] MEDS: levoTHYROXINE 125mcg tablet PO SCH (10:02)
[2019-10-04] MEDS: lactobacillus rhamnosus 10,000 MMU CELLS/CAPSULE PO SCH ×2 (10:07→20:26)
[2019-10-04] MEDS: metoprolol succinate 25mg (24-HOUR) SR. Tablet PO SCH (10:07)
[2019-10-04 11:56] LABS: BASOPHILS % (AUTO) 0.8 % (0-1); EOSINOPHILS # (AUTO) 0.1 X10'3 (0-0.9); EOSINOPHILS % (AUTO) 3.1 % (0-6); HEMOGLOBIN 7.1 g/dl (14.0-17.9); LYMPHOCYTES # (AUTO) 0.7 X10'3 (1.1-4.8); LYMPHOCYTES % (AUTO) 17.3 % (21-51); MEAN CORPUSCULAR HEMOGLOBIN 27.7 PG (27.0-31.0); MEAN CORPUSCULAR HGB CONC 33.8 g/dL (33.0-36.5); MEAN CORPUSCULAR VOLUME 82.1 FL (78-98); MEAN PLATELET VOLUME 7.3 FL (7.4-10.4); MONOCYTES # (AUTO) 0.7 X10'3 (0-0.9); MONOCYTES % (AUTO) 18.1 % (2-12); NEUTROPHILS # (AUTO) 2.4 X10'3 (1.8-7.7); NEUTROPHILS % (AUTO) 60.7 % (42-75); PLATELET COUNT 183 X10'3 (140-440); RED BLOOD COUNT 2.56 X10'6 (4.70-6.10); RED CELL DISTRIBUTION WIDTH 17.6 % (11.5-14.5)
[2019-10-04] MEDS ORDERED: VANCOMYCIN LEVEL IV ONE (12:30)
[2019-10-04] MEDS ORDERED: vancomycin inj. 750 MG in normal saline 250ml IV soln 250 ML IV SCH (13:00)
--- NOTE | 2019-10-04 17:02 | NUR ---
RN TC: Pt requests diet options. Pt seen by DENISE for verbal high protein ed and pt agreeable to chocolate ensure high proteins TIDWM. notified; pending verification prior to sending on trays. 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 No nutrition concerns at this time. Will continue to monitor. Rec: 1. continue mechanical soft/grind/carb controlled/heart healthy diet per SP/MD 2. ensure high protein TIDWM; pending MD verification prior to sending on trays 3. routine bowel care 4. MVI for wound healing 5. wt per rx Addendum: 10/04/19 at [address] Amended: Links added.
[2019-10-04 18:00] VITALS: BP 126/65
[2019-10-04] MEDS ORDERED: lactose-reduced food (Ensure High Protein) 237ml bottle PO SCH (18:00)
[2019-10-04] MEDS: nafcillin inj 2 GM in normal saline 100ml IV soln 100 ML IV SCH (20:26)
[2019-10-04] MEDS: insulin glargine (Lantus) pen - multi-dose SQ SCH (21:11)
[2019-10-04 22:00] VITALS: BP 121/65
--- NOTE | 2019-10-04 22:12 | NUR ---
REC'D CALL FROM LAB REGARDING PT'S ANTIBODY TESTING. RESULTS SAY THAT THERE IS NO SIGNIFICANT ALOE ANTIBODY. NOTIFIED DR BACH OF THESE RESULTS AND H/H 7.1 AND 21.0, THERE IS NO ACTIVE BLEEDING. NO NEW ORDERS AT THIS TIME, WILL WAIT FOR DAY HOSPITALIST FOR NEW ORDERS. PT IS STABLE AND HAS NO S/S OF DISTRESS. BP 121/65, HR 88. A&OX4.
[2019-10-05] MEDS: nafcillin inj 2 GM in normal saline 100ml IV soln 100 ML IV SCH ×4 (02:38→20:49)
[2019-10-05 05:46] LABS: EOSINOPHILS # (AUTO) 0.1 X10'3 (0-0.9); EOSINOPHILS % (AUTO) 4.5 % (0-6); LYMPHOCYTES # (AUTO) 0.8 X10'3 (1.1-4.8); LYMPHOCYTES % (AUTO) 23.5 % (21-51); MEAN CORPUSCULAR HEMOGLOBIN 27.9 PG (27.0-31.0); MEAN CORPUSCULAR HGB CONC 34.5 g/dL (33.0-36.5); MEAN CORPUSCULAR VOLUME 80.7 FL (78-98); MEAN PLATELET VOLUME 7.7 FL (7.4-10.4); MONOCYTES # (AUTO) 0.5 X10'3 (0-0.9); MONOCYTES % (AUTO) 16.1 % (2-12); NEUTROPHILS # (AUTO) 1.8 X10'3 (1.8-7.7); NEUTROPHILS % (AUTO) 54.9 % (42-75); PLATELET COUNT 192 X10'3 (140-440); RED CELL DISTRIBUTION WIDTH 17.6 % (11.5-14.5); WHITE BLOOD COUNT 3.3 X10'3 (4.5-11.0)
[2019-10-05 05:50] LABS: HEMOGLOBIN 6.7 g/dl (14.0-17.9)
[2019-10-05 05:51] LABS: HEMATOCRIT 19.4 % (42.0-52.0)
--- NOTE | 2019-10-05 05:54 | NUR ---
Critical lab value received H/H 6.7/19.4. MD Javier notified with new orders to transfuse 1 unit of PRBC.
[2019-10-05 06:00] VITALS: BP 130/67
[2019-10-05 06:03] LABS: ALANINE AMINOTRANSFERASE 8 U/L (12-78); ALBUMIN 2.3 G/DL (3.4-5.0); ALBUMIN/GLOBULIN RATIO 0.7 (1.1-1.5); ALKALINE PHOSPHATASE 102 IU/L (46-116); ANION GAP 10 (8-16); ASPARTATE AMINO TRANSFERASE 12 U/L (10-37); BILIRUBIN,TOTAL 0.8 MG/DL (0.1-1.0); BLOOD UREA NITROGEN 11 MG/DL (7-18); CALCIUM 7.9 MG/DL (8.5-10.1); CHLORIDE 106 MMOL/L (99-107); CREATININE 0.92 MG/DL (0.60-1.10); GLUCOSE 202 MG/DL (70-104); POTASSIUM 3.4 MMOL/L (3.5-5.1); SODIUM 138 MMOL/L (135-145); TOTAL CARBON DIOXIDE 22.4 MMOL/L (24-32); TOTAL PROTEIN 5.8 G/DL (6.4-8.2); eGFR 79 ML/MIN
--- NOTE | 2019-10-05 06:11 | NUR ---
REPORT GIVEN TO BENOIT PIMENTEL.
--- NOTE | 2019-10-05 06:44 | NUR ---
Patient in room ORTHO 4017. I have received report from Nory LABOY and had the opportunity to ask questions and assume patient care.
[2019-10-05] MEDS: levoTHYROXINE 100mcg tablet PO SCH (07:42)
[2019-10-05] MEDS: levoTHYROXINE 125mcg tablet PO SCH (07:42)
[2019-10-05] MEDS: metoprolol succinate 25mg (24-HOUR) SR. Tablet PO SCH (07:42)
[2019-10-05] MEDS: lactobacillus rhamnosus 10,000 MMU CELLS/CAPSULE PO SCH ×2 (07:43→20:48)
[2019-10-05] MEDS: pantoprazole 40mg Tablet.DR PO SCH (07:43)
[2019-10-05] MEDS: venlafaxine 37.5mg tablet PO SCH ×2 (07:43→20:48)
[2019-10-05] MEDS: K and/or MAG REPLACEMENT MC SCH (08:00)
[2019-10-05] MEDS: insulin Lispro (HumaLOG) vial - multi-dose SQ SCH ×3 (08:41→19:23)
[2019-10-05 09:00] VITALS: BP 121/61
[2019-10-05] MEDS: clopidogrel 75mg tablet PO SCH (09:04)
[2019-10-05] MEDS: HYDROcodone/acetaminophen 10/325mg tab PO PRN ×3 (09:05→22:35)
[2019-10-05 09:18] VITALS: BP 126/61
[2019-10-05] MEDS: normal saline 1000ml 1,000 ML IV SCH ×3 (10:45→20:45)
[2019-10-05 11:48] VITALS: BP 132/71
[2019-10-05] MEDS ORDERED: VANCOMYCIN LEVEL IV ONE (12:30)
[2019-10-05 13:16] LABS: OCCULT BLOOD STOOL NEGATIVE (Neg)
[2019-10-05 13:17] LABS: HEMATOCRIT 24.4 % (42.0-52.0); HEMOGLOBIN 8.1 g/dl (14.0-17.9); MEAN CORPUSCULAR HEMOGLOBIN 27.7 PG (27.0-31.0); MEAN CORPUSCULAR HGB CONC 33.4 g/dL (33.0-36.5); MEAN PLATELET VOLUME 7.4 FL (7.4-10.4); PLATELET COUNT 223 X10'3 (140-440); RED BLOOD COUNT 2.94 X10'6 (4.70-6.10); RED CELL DISTRIBUTION WIDTH 17.4 % (11.5-14.5); WHITE BLOOD COUNT 2.8 X10'3 (4.5-11.0)
[2019-10-05 18:00] VITALS: BP 132/65
--- NOTE | 2019-10-05 18:25 | NUR ---
Problems reprioritized. Patient report given, questions answered & plan of care reviewed with Bety LABOY.
[2019-10-05] MEDS: insulin glargine (Lantus) pen - multi-dose SQ SCH (21:33)
[2019-10-05 22:00] VITALS: BP 137/70
[2019-10-06] MEDS: nafcillin inj 2 GM in normal saline 100ml IV soln 100 ML IV SCH ×4 (02:32→20:36)
[2019-10-06 05:20] LABS: BASOPHILS % (AUTO) 1.9 % (0-1); EOSINOPHILS # (AUTO) 0.1 X10'3 (0-0.9); EOSINOPHILS % (AUTO) 5.1 % (0-6); HEMOGLOBIN 7.3 g/dl (14.0-17.9); LYMPHOCYTES # (AUTO) 0.8 X10'3 (1.1-4.8); LYMPHOCYTES % (AUTO) 33.3 % (21-51); MEAN CORPUSCULAR HEMOGLOBIN 28.2 PG (27.0-31.0); MEAN CORPUSCULAR HGB CONC 34.3 g/dL (33.0-36.5); MEAN CORPUSCULAR VOLUME 82.2 FL (78-98); MEAN PLATELET VOLUME 7.4 FL (7.4-10.4); MONOCYTES # (AUTO) 0.3 X10'3 (0-0.9); MONOCYTES % (AUTO) 10.8 % (2-12); NEUTROPHILS # (AUTO) 1.2 X10'3 (1.8-7.7); NEUTROPHILS % (AUTO) 48.9 % (42-75); PLATELET COUNT 191 X10'3 (140-440); RED BLOOD COUNT 2.58 X10'6 (4.70-6.10); RED CELL DISTRIBUTION WIDTH 16.8 % (11.5-14.5); WHITE BLOOD COUNT 2.5 X10'3 (4.5-11.0)
[2019-10-06 05:34] LABS: ALANINE AMINOTRANSFERASE 11 U/L (12-78); ALBUMIN 2.2 G/DL (3.4-5.0); ALBUMIN/GLOBULIN RATIO 0.6 (1.1-1.5); ALKALINE PHOSPHATASE 95 IU/L (46-116); ANION GAP 11 (8-16); ASPARTATE AMINO TRANSFERASE 13 U/L (10-37); BILIRUBIN,TOTAL 0.8 MG/DL (0.1-1.0); BLOOD UREA NITROGEN 8 MG/DL (7-18); BUN/CREATININE RATIO 10.5 (5.4-32.0); CALCIUM 8.1 MG/DL (8.5-10.1); CHLORIDE 108 MMOL/L (99-107); CREATININE 0.76 MG/DL (0.60-1.10); GLUCOSE 179 MG/DL (70-104); POTASSIUM 3.2 MMOL/L (3.5-5.1); SODIUM 142 MMOL/L (135-145); TOTAL CARBON DIOXIDE 23.3 MMOL/L (24-32); TOTAL PROTEIN 5.7 G/DL (6.4-8.2); eGFR > 90 ML/MIN
[2019-10-06 05:38] LABS: HEMATOCRIT 21.3 % (42.0-52.0)
[2019-10-06 06:00] VITALS: BP 140/61
--- NOTE | 2019-10-06 06:05 | NUR ---
Patient in room ORTHO 4017. I have received report from Bety LABOY and had the opportunity to ask questions and assume patient care.
[2019-10-06 06:24] LABS: ANISOCYTOSIS 1+; PLATELET ESTIMATE NORMAL; TOTAL CELLS COUNTED 100
[2019-10-06] MEDS ORDERED: magnesium Cl slow-release 64mg tablet PO PRN (07:30)
[2019-10-06] MEDS ORDERED: magnesium 4gm in 100ml NS 100 ML IV PRN (07:30)
[2019-10-06] MEDS ORDERED: potassium Cl 20 mEq SR tablet PO PRN (07:30)
[2019-10-06] MEDS ORDERED: potassium CL 10mEq/100ml bag 100 ML IV PRN (07:30)
[2019-10-06] MEDS: levoTHYROXINE 125mcg tablet PO SCH (07:31)
[2019-10-06] MEDS: clopidogrel 75mg tablet PO SCH (07:31)
[2019-10-06] MEDS: metoprolol succinate 25mg (24-HOUR) SR. Tablet PO SCH (07:31)
[2019-10-06] MEDS: venlafaxine 37.5mg tablet PO SCH ×2 (07:31→20:37)
[2019-10-06] MEDS: pantoprazole 40mg Tablet.DR PO SCH (07:31)
[2019-10-06] MEDS: lactobacillus rhamnosus 10,000 MMU CELLS/CAPSULE PO SCH ×2 (07:31→20:37)
[2019-10-06] MEDS: levoTHYROXINE 100mcg tablet PO SCH (07:32)
[2019-10-06] MEDS: HYDROcodone/acetaminophen 5mg/325mg tablet PO PRN (07:33)
[2019-10-06] MEDS: K and/or MAG REPLACEMENT MC SCH (08:32)
[2019-10-06] MEDS: insulin Lispro (HumaLOG) vial - multi-dose SQ SCH ×3 (08:33→18:45)
[2019-10-06] MEDS: potassium Cl 20 mEq SR tablet PO PRN ×2 (08:34→16:32)
[2019-10-06 10:00] VITALS: BP 133/78
[2019-10-06] MEDS: loperamide 2mg capsule PO PRN (16:32)
[2019-10-06] MEDS: HYDROcodone/acetaminophen 10/325mg tab PO PRN ×2 (16:33→20:36)
[2019-10-06 18:00] VITALS: BP 149/76
--- NOTE | 2019-10-06 18:17 | NUR ---
Problems reprioritized. Patient report given, questions answered & plan of care reviewed with Jessica Gillespie RN.
--- NOTE | 2019-10-06 18:22 | NUR ---
Patient in room ORTHO 4017. I have received report from BENOIT Vallejo and had the opportunity to ask questions and assume patient care.
[2019-10-06] MEDS: insulin glargine (Lantus) pen - multi-dose SQ SCH (20:47)
[2019-10-06 22:00] VITALS: BP 126/72
[2019-10-07] MEDS: potassium Cl 20 mEq SR tablet PO PRN ×4 (02:10→20:33)
[2019-10-07] MEDS: nafcillin inj 2 GM in normal saline 100ml IV soln 100 ML IV SCH ×4 (02:10→20:32)
[2019-10-07] MEDS: loperamide 2mg capsule PO PRN ×2 (02:10→19:01)
[2019-10-07] MEDS: HYDROcodone/acetaminophen 10/325mg tab PO PRN ×4 (02:16→17:42)
[2019-10-07 06:00] VITALS: BP 151/74
--- NOTE | 2019-10-07 06:23 | NUR ---
Problems reprioritized. Patient report given, questions answered & plan of care reviewed with BENOIT Addison.
[2019-10-07] MEDS: levoTHYROXINE 125mcg tablet PO SCH (07:36)
[2019-10-07] MEDS: metoprolol succinate 25mg (24-HOUR) SR. Tablet PO SCH (07:36)
[2019-10-07] MEDS: levoTHYROXINE 100mcg tablet PO SCH (07:36)
[2019-10-07] MEDS: pantoprazole 40mg Tablet.DR PO SCH (07:36)
[2019-10-07] MEDS: clopidogrel 75mg tablet PO SCH (07:36)
[2019-10-07] MEDS: venlafaxine 37.5mg tablet PO SCH ×2 (07:37→20:33)
[2019-10-07] MEDS: lactobacillus rhamnosus 10,000 MMU CELLS/CAPSULE PO SCH ×2 (07:37→20:32)
[2019-10-07] MEDS: K and/or MAG REPLACEMENT MC SCH (08:00)
[2019-10-07 08:20] LABS: BASOPHILS % (AUTO) 1.1 % (0-1); EOSINOPHILS # (AUTO) 0.1 X10'3 (0-0.9); EOSINOPHILS % (AUTO) 3.6 % (0-6); HEMATOCRIT 25.4 % (42.0-52.0); HEMOGLOBIN 8.5 g/dl (14.0-17.9); LYMPHOCYTES % (AUTO) 24.2 % (21-51); MEAN CORPUSCULAR HEMOGLOBIN 27.8 PG (27.0-31.0); MEAN CORPUSCULAR HGB CONC 33.6 g/dL (33.0-36.5); MEAN CORPUSCULAR VOLUME 82.7 FL (78-98); MEAN PLATELET VOLUME 7.7 FL (7.4-10.4); MONOCYTES # (AUTO) 0.3 X10'3 (0-0.9); MONOCYTES % (AUTO) 7.4 % (2-12); NEUTROPHILS # (AUTO) 2.6 X10'3 (1.8-7.7); NEUTROPHILS % (AUTO) 63.7 % (42-75); PLATELET COUNT 281 X10'3 (140-440); RED BLOOD COUNT 3.07 X10'6 (4.70-6.10); RED CELL DISTRIBUTION WIDTH 17.7 % (11.5-14.5); WHITE BLOOD COUNT 4.2 X10'3 (4.5-11.0)
[2019-10-07 08:33] LABS: ALANINE AMINOTRANSFERASE 11 U/L (12-78); ALBUMIN 2.6 G/DL (3.4-5.0); ALBUMIN/GLOBULIN RATIO 0.7 (1.1-1.5); ALKALINE PHOSPHATASE 108 IU/L (46-116); ANION GAP 12 (8-16); ASPARTATE AMINO TRANSFERASE 14 U/L (10-37); BILIRUBIN,TOTAL 0.8 MG/DL (0.1-1.0); BLOOD UREA NITROGEN 7 MG/DL (7-18); BUN/CREATININE RATIO 8.3 (5.4-32.0); CALCIUM 8.4 MG/DL (8.5-10.1); CHLORIDE 107 MMOL/L (99-107); CREATININE 0.84 MG/DL (0.60-1.10); GLUCOSE 203 MG/DL (70-104); MAGNESIUM 1.7 MG/DL (1.5-2.4); POTASSIUM 3.4 MMOL/L (3.5-5.1); SODIUM 141 MMOL/L (135-145); TOTAL CARBON DIOXIDE 21.8 MMOL/L (24-32); TOTAL PROTEIN 6.6 G/DL (6.4-8.2); eGFR 88 ML/MIN
[2019-10-07] MEDS: insulin Lispro (HumaLOG) vial - multi-dose SQ SCH ×3 (08:53→19:05)
[2019-10-07 10:00] VITALS: BP 141/89
[2019-10-07] MEDS: HYDROmorphone inj. 0.5 MG/0.5 ML DISP.SYRIN IV PRN (11:12)
[2019-10-07 18:00] VITALS: BP 127/68
--- NOTE | 2019-10-07 18:31 | NUR ---
Patient in room ORTHO 4017. I have received report from BENOIT Addison and had the opportunity to ask questions and assume patient care.
[2019-10-07] MEDS: insulin glargine (Lantus) pen - multi-dose SQ SCH (20:49)
[2019-10-07 22:00] VITALS: BP 124/60
[2019-10-08] MEDS: nafcillin inj 2 GM in normal saline 100ml IV soln 100 ML IV SCH ×3 (01:56→14:15)
[2019-10-08] MEDS: HYDROcodone/acetaminophen 10/325mg tab PO PRN (05:28)
[2019-10-08] MEDS: loperamide 2mg capsule PO PRN (05:28)
[2019-10-08 06:00] VITALS: BP 150/78
--- NOTE | 2019-10-08 06:20 | NUR ---
Patient in room ORTHO 4017. I have received report from Jessica Gillespie RN and had the opportunity to ask questions and assume patient care.
--- NOTE | 2019-10-08 06:20 | NUR ---
Problems reprioritized. Patient report given, questions answered & plan of care reviewed with BENOIT Vallejo.
[2019-10-08 06:45] LABS: BASOPHILS % (AUTO) 1.3 % (0-1); EOSINOPHILS # (AUTO) 0.2 X10'3 (0-0.9); EOSINOPHILS % (AUTO) 4.8 % (0-6); HEMATOCRIT 23.6 % (42.0-52.0); LYMPHOCYTES # (AUTO) 0.8 X10'3 (1.1-4.8); LYMPHOCYTES % (AUTO) 22.7 % (21-51); MEAN CORPUSCULAR HEMOGLOBIN 28.3 PG (27.0-31.0); MEAN CORPUSCULAR HGB CONC 34.1 g/dL (33.0-36.5); MEAN CORPUSCULAR VOLUME 83.2 FL (78-98); MEAN PLATELET VOLUME 7.6 FL (7.4-10.4); MONOCYTES # (AUTO) 0.3 X10'3 (0-0.9); MONOCYTES % (AUTO) 8.5 % (2-12); NEUTROPHILS # (AUTO) 2.1 X10'3 (1.8-7.7); NEUTROPHILS % (AUTO) 62.7 % (42-75); PLATELET COUNT 222 X10'3 (140-440); RED BLOOD COUNT 2.83 X10'6 (4.70-6.10); RED CELL DISTRIBUTION WIDTH 17.6 % (11.5-14.5); WHITE BLOOD COUNT 3.3 X10'3 (4.5-11.0)
[2019-10-08 06:59] LABS: ALBUMIN 2.5 G/DL (3.4-5.0); ALBUMIN/GLOBULIN RATIO 0.7 (1.1-1.5); ALKALINE PHOSPHATASE 101 IU/L (46-116); ANION GAP 12 (8-16); ASPARTATE AMINO TRANSFERASE 15 U/L (10-37); BILIRUBIN,TOTAL 0.8 MG/DL (0.1-1.0); BLOOD UREA NITROGEN 10 MG/DL (7-18); BUN/CREATININE RATIO 11.5 (5.4-32.0); CALCIUM 8.1 MG/DL (8.5-10.1); CHLORIDE 107 MMOL/L (99-107); CREATININE 0.87 MG/DL (0.60-1.10); GLUCOSE 144 MG/DL (70-104); POTASSIUM 3.7 MMOL/L (3.5-5.1); SODIUM 141 MMOL/L (135-145); TOTAL CARBON DIOXIDE 22.3 MMOL/L (24-32); TOTAL PROTEIN 6.1 G/DL (6.4-8.2); eGFR 84 ML/MIN
[2019-10-08 07:17] LABS: ALANINE AMINOTRANSFERASE 7 U/L (12-78)
[2019-10-08] MEDS: venlafaxine 37.5mg tablet PO SCH (08:28)
[2019-10-08] MEDS: metoprolol succinate 25mg (24-HOUR) SR. Tablet PO SCH (08:29)
[2019-10-08] MEDS: pantoprazole 40mg Tablet.DR PO SCH (08:29)
[2019-10-08] MEDS: levoTHYROXINE 100mcg tablet PO SCH (08:29)
[2019-10-08] MEDS: levoTHYROXINE 125mcg tablet PO SCH (08:29)
[2019-10-08] MEDS: potassium Cl 20 mEq SR tablet PO PRN (08:29)
[2019-10-08] MEDS: clopidogrel 75mg tablet PO SCH (08:30)
[2019-10-08] MEDS: lactobacillus rhamnosus 10,000 MMU CELLS/CAPSULE PO SCH (08:30)
[2019-10-08] MEDS: K and/or MAG REPLACEMENT MC SCH (08:32)
[2019-10-08] MEDS: insulin Lispro (HumaLOG) vial - multi-dose SQ SCH ×2 (09:07→13:34)
[2019-10-08] MEDS: ondansetron/PF 4mg/2ml inj IV PRN (09:08)
[2019-10-08 10:00] VITALS: BP 120/72
[2019-10-08] MEDS: HYDROcodone/acetaminophen 5mg/325mg tablet PO PRN (11:24)
--- NOTE | 2019-10-08 15:15 | NUR ---
Patient transferred to [facility] today at 1515. All belongings sent with patient.
== END 2019-10-08 15:10 | DRG 853 ==
LOC: ER 13:53 → ED HOLD 16:45 → ORTHO 4S 19:12
PROVIDERS: ADMIT Family Medicine; ATTEND Family Medicine
PROC: 0Y6R0Z1 Detachment at Right 2nd Toe, High, Open Approach (ICD-10-PCS; principal; 2019-10-02)
PROC: 0QBQ0ZZ Excision of Right Toe Phalanx, Open Approach (ICD-10-PCS; 2019-10-02)
PROC: 3E02340 Introduction of Influenza Vaccine into Muscle, Percutaneous Approach (ICD-10-PCS; 2019-10-02)
PROC: 3E0234Z Introduction of Serum, Toxoid and Vaccine into Muscle, Percutaneous Approach (ICD-10-PCS; 2019-10-02)
PROC: 30233N1 Transfusion of Nonautologous Red Blood Cells into Peripheral Vein, Percutaneous Approach (ICD-10-PCS; 2019-10-05)
PROC: 02HV33Z Insertion of Infusion Device into Superior Vena Cava, Percutaneous Approach (ICD-10-PCS; 2019-10-05)
PROC: B548ZZA Ultrasonography of Superior Vena Cava, Guidance (ICD-10-PCS; 2019-10-05)
DX: A41.01 Sepsis due to Methicillin susceptible Staphylococcus aureus (principal); E43 Unspecified severe protein-calorie malnutrition; L02.611 Cutaneous abscess of right foot; I69.354 Hemiplegia and hemiparesis following cerebral infarction affecting left non-dominant side; E87.2 Acidosis; M86.8X8 Other osteomyelitis, other site; L03.031 Cellulitis of right toe; D63.8 Anemia in other chronic diseases classified elsewhere; E03.9 Hypothyroidism, unspecified; E11.40 Type 2 diabetes mellitus with diabetic neuropathy, unspecified; E11.621 Type 2 diabetes mellitus with foot ulcer; L97.529 Non-pressure chronic ulcer of other part of left foot with unspecified severity; E87.6 Hypokalemia; Z96.643 Presence of artificial hip joint, bilateral; Z96.653 Presence of artificial knee joint, bilateral; E11.69 Type 2 diabetes mellitus with other specified complication; E78.00 Pure hypercholesterolemia, unspecified; E78.5 Hyperlipidemia, unspecified; F41.0 Panic disorder [episodic paroxysmal anxiety]; Z80.0 Family history of malignant neoplasm of digestive organs; Z83.3 Family history of diabetes mellitus; Z87.11 Personal history of peptic ulcer disease; Z87.19 Personal history of other diseases of the digestive system; Z98.49 Cataract extraction status, unspecified eye; Z23 Encounter for immunization; Z88.5 Allergy status to narcotic agent; Z79.899 Other long term (current) drug therapy; Z79.82 Long term (current) use of aspirin; Z79.4 Long term (current) use of insulin; Z82.49 Family history of ischemic heart disease and other diseases of the circulatory system; Z68.27 Body mass index [BMI] 27.0-27.9, adult
CPT/HCPCS: 36415; 36569; 73700; 76937; 80053; 80061; 80202; 82272; 82948; 83036; 83605; 83735; 84100; 84145; 84443; 85025; 85027; 85651; 86140; 86870; 86885; 86900; 86901; 86922; 87040; 87077; 87081; 87186; 93306; 97110; 97112; 97116; 97161; 97530; 99285; G0378; J0696; J1170; J1815; J2405; J2543; J2765; J3370; J7030; J7050; P9016; Q2037

== ENCOUNTER 2020-05-22 10:08 | Emergency (ER) | payer MEDICARE, BC ==
[~2020-05-22] VITALS: Ht 198.1 cm; Wt 94.5 kg
[~2020-05-22 10:08] MED LIST changes: -ASPI-1264 PO; -DIAZ5TAB4 PO; +FLO0.4C PO; -TAMS0.4C32 PO
--- NOTE | 2020-05-22 10:18 | NUR ---
Sue [phone] home health nurse ([facility]) Marla [phone]
[2020-05-22 11:43] LABS: BASOPHILS # (AUTO) 0.1 X10'3 (0-0.2); BASOPHILS % (AUTO) 0.9 % (0-1); EOSINOPHILS # (AUTO) 0.2 X10'3 (0-0.9); EOSINOPHILS % (AUTO) 2.6 % (0-6); HEMATOCRIT 23.5 % (42.0-52.0); HEMOGLOBIN 7.6 g/dl (14.0-17.9); LYMPHOCYTES % (AUTO) 15.6 % (21-51); MEAN CORPUSCULAR HGB CONC 32.5 g/dL (33.0-36.5); MEAN CORPUSCULAR VOLUME 83.2 FL (78-98); MONOCYTES # (AUTO) 0.9 X10'3 (0-0.9); MONOCYTES % (AUTO) 13.5 % (2-12); NEUTROPHILS # (AUTO) 4.4 X10'3 (1.8-7.7); NEUTROPHILS % (AUTO) 67.4 % (42-75); PLATELET COUNT 198 X10'3 (140-440); RED BLOOD COUNT 2.82 X10'6 (4.70-6.10); RED CELL DISTRIBUTION WIDTH 20.1 % (11.5-14.5); WHITE BLOOD COUNT 6.5 X10'3 (4.5-11.0)
[2020-05-22 11:58] LABS: ALANINE AMINOTRANSFERASE 17 U/L (12-78); ALBUMIN 2.8 G/DL (3.4-5.0); ALBUMIN/GLOBULIN RATIO 0.6 (1.1-1.5); ALKALINE PHOSPHATASE 137 IU/L (46-116); ANION GAP 8 (8-16); ASPARTATE AMINO TRANSFERASE 18 U/L (10-37); BILIRUBIN,TOTAL 0.6 MG/DL (0.1-1.0); BLOOD UREA NITROGEN 16 MG/DL (7-18); BUN/CREATININE RATIO 19.3 (5.4-32.0); CALCIUM 8.8 MG/DL (8.5-10.1); CHLORIDE 102 MMOL/L (99-107); CREATININE 0.83 MG/DL (0.60-1.10); GLUCOSE 162 MG/DL (70-104); MAGNESIUM 1.8 MG/DL (1.5-2.4); SODIUM 134 MMOL/L (135-145); TOTAL CARBON DIOXIDE 23.9 MMOL/L (24-32); TOTAL PROTEIN 7.3 G/DL (6.4-8.2); eGFR 89 ML/MIN
[2020-05-22 12:01] LABS: PARTIAL THROMBOPLASTIN TIME 28 SECONDS (22-32)
[2020-05-22] MEDS ORDERED: normal saline 1000ML IV soln IVB ONE (12:05)
[2020-05-22 12:12] LABS: CLARITY,URINE CLOUDY (Clear); COLOR,URINE YELLOW (Yellow); GLUCOSE, URINE NEGATIVE (Neg); KETONES,URINE NEGATIVE (Neg); LEUKOCYTE ESTERASE ,URINE MODERATE (Neg); NITRITES, URINE POSITIVE (Neg); OCCULT BLOOD,URINE MODERATE (Neg); PH,URINE 6.5 (4.8-8.0); PROTEIN,URINE 100 mg/dl (Neg)
[2020-05-22 12:18] LABS: UA COLLECTION TYPE URINAL
[2020-05-22 12:20] LABS: MUCUS STRANDS NONE SEEN /LPF (Neg); SQUAMOUS EPITHELIAL CELL,UR FEW /LPF (FEW)
[2020-05-22 12:21] LABS: WBC,URINE TNTC /HPF (0-4)
[2020-05-22 12:22] LABS: BACTERIA,URINE 3+ /HPF (Neg)
[2020-05-22 12:25] LABS: PLATELET ESTIMATE NORMAL
[2020-05-22 12:26] LABS: GIANT PLATELET FEW; LARGE PLATELETS FEW
[2020-05-22 12:27] LABS: ANISOCYTOSIS 3+; STOMATOCYTES 1+
[2020-05-22 12:28] LABS: SPHEROCYTES FEW
--- NOTE | 2020-05-22 12:41 | NUR ---
spoke to pt , updated her on pt status
--- NOTE | 2020-05-22 14:00 | NUR ---
MRI came to get pt in wheel chair, he is unable to transport that way, they will come back and get him by rox
--- NOTE | 2020-05-22 14:57 | NUR ---
spoke to Kane in MRI, re: time for MRI, she states they have a triple study and should be down in approx 20 mins
--- NOTE | 2020-05-22 15:13 | NUR ---
pt off unit to MRI
[2020-05-22 16:19] VITALS: BP 112/69
[2020-05-22] MEDS ORDERED: DIAZ5TAB4 PO (17:26)
[2020-05-22] MEDS ORDERED: LEVO100T PO (17:26)
[2020-05-22] MEDS ORDERED: DOXY100C76 PO (17:36)
[2020-05-22] MEDS ORDERED: LACT1CAP60 PO (17:36)
[2020-05-22] MEDS ORDERED: LEVO750T21 PO (17:36)
== END 2020-05-22 19:13 | disposition home or self-care (01) ==
LOC: ER 10:09
DX: M86.8X7 Other osteomyelitis, ankle and foot (principal); L03.032 Cellulitis of left toe; N39.0 Urinary tract infection, site not specified; E78.00 Pure hypercholesterolemia, unspecified; E11.9 Type 2 diabetes mellitus without complications; Z86.73 Personal history of transient ischemic attack (TIA), and cerebral infarction without residual deficits; Z90.49 Acquired absence of other specified parts of digestive tract; Z98.890 Other specified postprocedural states; Z79.4 Long term (current) use of insulin; Z79.899 Other long term (current) drug therapy
CPT/HCPCS: 36415; 73630; 73718; 80053; 81001; 82948; 83605; 83735; 84145; 85025; 85610; 85730; 87040; 87077; 87088; 87186; 96360; 99285; J7030

== ENCOUNTER 2020-05-26 09:55 | Emergency (ER) | payer MEDICARE, BC ==
[~2020-05-26] VITALS: Ht 188 cm; Wt 95.5 kg
[~2020-05-26 09:55] MED LIST changes: +DIAZ5TAB4 PO; +DOXY100C76 PO; +LACT1CAP60 PO; +LEVO100T PO; +LEVO750T21 PO; -SYN0.088T PO
[2020-05-26 10:45] LABS: BASOPHILS % (AUTO) 1.1 % (0-1); EOSINOPHILS # (AUTO) 0.1 X10'3 (0-0.9); EOSINOPHILS % (AUTO) 3.1 % (0-6); HEMOGLOBIN 7.1 g/dl (14.0-17.9); LYMPHOCYTES # (AUTO) 0.8 X10'3 (1.1-4.8); LYMPHOCYTES % (AUTO) 22.7 % (21-51); MEAN CORPUSCULAR HEMOGLOBIN 27.2 PG (27.0-31.0); MEAN CORPUSCULAR HGB CONC 32.6 g/dL (33.0-36.5); MEAN CORPUSCULAR VOLUME 83.5 FL (78-98); MEAN PLATELET VOLUME 8.1 FL (7.4-10.4); MONOCYTES # (AUTO) 0.6 X10'3 (0-0.9); MONOCYTES % (AUTO) 16.8 % (2-12); NEUTROPHILS % (AUTO) 56.3 % (42-75); PLATELET COUNT 180 X10'3 (140-440); RED CELL DISTRIBUTION WIDTH 20.4 % (11.5-14.5); WHITE BLOOD COUNT 3.6 X10'3 (4.5-11.0)
[2020-05-26 10:48] LABS: HEMATOCRIT 21.7 % (42.0-52.0)
[2020-05-26 11:02] LABS: ALANINE AMINOTRANSFERASE 16 U/L (12-78); ALBUMIN 2.6 G/DL (3.4-5.0); ALBUMIN/GLOBULIN RATIO 0.6 (1.1-1.5); ALKALINE PHOSPHATASE 153 IU/L (46-116); ANION GAP 9 (8-16); ASPARTATE AMINO TRANSFERASE 15 U/L (10-37); BILIRUBIN,TOTAL 0.6 MG/DL (0.1-1.0); BLOOD UREA NITROGEN 21 MG/DL (7-18); BUN/CREATININE RATIO 21.6 (5.4-32.0); CHLORIDE 104 MMOL/L (99-107); CREATININE 0.97 MG/DL (0.60-1.10); GLUCOSE 244 MG/DL (70-104); MAGNESIUM 1.7 MG/DL (1.5-2.4); POTASSIUM 3.6 MMOL/L (3.5-5.1); SODIUM 138 MMOL/L (135-145); TOTAL CARBON DIOXIDE 25.4 MMOL/L (24-32); eGFR 74 ML/MIN
[2020-05-26 11:14] VITALS: BP 112/78
[2020-05-26] MEDS ORDERED: LEVO500T89 PO (11:38)
[2020-05-26] MEDS ORDERED: HYDROcodone/acetaminophen 10/325mg tab PO ONE (11:50)
--- NOTE | 2020-05-26 12:07 | NUR ---
SPOKE WITH ON PHONE AND GAVE ETA FOR [facility]. AT HOME.
--- NOTE | 2020-05-26 12:51 | NUR ---
20-30 [facility] ETA
== END 2020-05-26 13:38 | disposition home or self-care (01) ==
LOC: ER 09:56
DX: S91.102A Unspecified open wound of left great toe without damage to nail, initial encounter (principal); M86.8X8 Other osteomyelitis, other site; D64.9 Anemia, unspecified; E11.9 Type 2 diabetes mellitus without complications; E78.00 Pure hypercholesterolemia, unspecified; Z86.73 Personal history of transient ischemic attack (TIA), and cerebral infarction without residual deficits; Z90.49 Acquired absence of other specified parts of digestive tract; Z98.890 Other specified postprocedural states; Z79.4 Long term (current) use of insulin; Z79.899 Other long term (current) drug therapy; X58.XXXA Exposure to other specified factors, initial encounter; Y93.89 Activity, other specified; Y92.89 Other specified places as the place of occurrence of the external cause; Y99.8 Other external cause status
CPT/HCPCS: 80053; 83605; 83735; 84145; 85025; 87040; 87070; 87077; 87186; 93005; 99284

== ENCOUNTER 2020-09-25 12:53 | Outpatient (CLI) | payer MEDICARE, BC ==
[~2020-09-25 12:53] MED LIST changes: -DOXY100C76 PO; -LEVO750T21 PO
[2020-09-25] MEDS ORDERED: LIDOcaine 2% 5ml jelly ONE (13:24)
== END 2020-09-25 23:59 | disposition home or self-care (01) ==
LOC: WOUND CARE 12:53 → EDSTATUS 13:00 → WOUND CARE 23:59
PROVIDERS: ATTEND Nurse Practitioner
DX: E11.621 Type 2 diabetes mellitus with foot ulcer (principal); L97.521 Non-pressure chronic ulcer of other part of left foot limited to breakdown of skin; I25.10 Atherosclerotic heart disease of native coronary artery without angina pectoris; E78.5 Hyperlipidemia, unspecified; E78.00 Pure hypercholesterolemia, unspecified; E87.6 Hypokalemia; D64.9 Anemia, unspecified; N39.0 Urinary tract infection, site not specified; N40.1 Benign prostatic hyperplasia with lower urinary tract symptoms; I10 Essential (primary) hypertension; M86.171 Other acute osteomyelitis, right ankle and foot; E03.9 Hypothyroidism, unspecified; M19.90 Unspecified osteoarthritis, unspecified site; K80.63 Calculus of gallbladder and bile duct with acute cholecystitis with obstruction; Z90.49 Acquired absence of other specified parts of digestive tract; Z96.659 Presence of unspecified artificial knee joint; Z98.49 Cataract extraction status, unspecified eye; Z86.73 Personal history of transient ischemic attack (TIA), and cerebral infarction without residual deficits; Z98.890 Other specified postprocedural states; Z79.899 Other long term (current) drug therapy; Z79.4 Long term (current) use of insulin
CPT/HCPCS: 73630; 82948; 97597

== ENCOUNTER 2020-10-25 11:10 | Outpatient (CLI) | payer MEDICARE, BC ==
[2020-10-25] MEDS ORDERED: LIDOcaine 2% 5ml jelly ONE (11:13)
== END 2020-10-25 23:59 | disposition home or self-care (01) ==
LOC: WOUND CARE 11:10
PROVIDERS: ATTEND Nurse Practitioner
DX: E11.621 Type 2 diabetes mellitus with foot ulcer (principal); L97.521 Non-pressure chronic ulcer of other part of left foot limited to breakdown of skin; I25.10 Atherosclerotic heart disease of native coronary artery without angina pectoris; E78.5 Hyperlipidemia, unspecified; E78.00 Pure hypercholesterolemia, unspecified; E87.6 Hypokalemia; D64.9 Anemia, unspecified; N39.0 Urinary tract infection, site not specified; N40.1 Benign prostatic hyperplasia with lower urinary tract symptoms; I10 Essential (primary) hypertension; M86.171 Other acute osteomyelitis, right ankle and foot; E03.9 Hypothyroidism, unspecified; M19.90 Unspecified osteoarthritis, unspecified site; K80.63 Calculus of gallbladder and bile duct with acute cholecystitis with obstruction; F41.9 Anxiety disorder, unspecified; F32.9 Major depressive disorder, single episode, unspecified; Z90.49 Acquired absence of other specified parts of digestive tract; Z96.659 Presence of unspecified artificial knee joint; Z98.49 Cataract extraction status, unspecified eye; Z86.73 Personal history of transient ischemic attack (TIA), and cerebral infarction without residual deficits; Z98.890 Other specified postprocedural states; Z79.899 Other long term (current) drug therapy; Z79.4 Long term (current) use of insulin; Z89.421 Acquired absence of other right toe(s)
CPT/HCPCS: 82948; G0463

== ENCOUNTER 2021-04-30 09:09 | Outpatient (CLI) | payer MEDICARE, BC ==
[~2021-04-30] VITALS: Ht 185.4 cm; Wt 109.1 kg
[2021-04-30] VITALS (8 sets, daily range): BP systolic 85–122; BP diastolic 53–74
[2021-04-30] MEDS ORDERED: nitroGLYCERIN 0.4mg SUBLingual tab SL PRN (10:10)
[2021-04-30] MEDS ORDERED: regadenoson 0.4mg/5ml syringe IV ONE (10:10)
[2021-04-30] MEDS ORDERED: metoprolol tartrate 1mg/ml inj IV PRN (10:10)
[2021-04-30] MEDS ORDERED: normal saline 500ml IV soln 500 ML IV ONE (10:10)
[2021-04-30] MEDS ORDERED: aminophylline 250mg/10ml inj. IV PRN (10:10)
[2021-04-30] MEDS ORDERED: regadenoson 0.4mg/5ml syringe IV PRN (10:15)
== END 2021-04-30 23:59 | disposition home or self-care (01) ==
LOC: RAD 09:09
PROVIDERS: ATTEND Internal Medicine Cardiovascular Disease
DX: R94.31 Abnormal electrocardiogram [ECG] [EKG] (principal); I10 Essential (primary) hypertension
CPT/HCPCS: 78452; 93017; 93306; A9500; J0280; J2785; J7040

== ENCOUNTER 2023-06-11 02:36 | Inpatient (IN) | payer MEDICARE, BC ==
[2023-06-11] VITALS (10 sets, daily range): BP systolic 115–134; BP diastolic 63–77; PULSE 89–102; RESP 20–24; TEMP 97.4–98.3; O2SAT 94–95
[~2023-06-11] VITALS: Ht 190.5 cm; Wt 113.0 kg
[~2023-06-11 02:36] MED LIST changes: +OMEP20TA43 PO; -OMEP20TA5 PO
[2023-06-11 03:15] LABS: BASOPHILS # (AUTO) 0.1 X10'3 (0-0.2); BASOPHILS % (AUTO) 0.6 % (0-1); EOSINOPHILS % (AUTO) 0.2 % (0-6); HEMATOCRIT 23.6 % (42.0-52.0); HEMOGLOBIN 7.8 g/dl (14.0-17.9); LYMPHOCYTES # (AUTO) 1.2 X10'3 (1.1-4.8); LYMPHOCYTES % (AUTO) 11.8 % (21-51); MEAN CORPUSCULAR HEMOGLOBIN 25.8 PG (27.0-31.0); MEAN PLATELET VOLUME 8.4 FL (7.4-10.4); MONOCYTES % (AUTO) 28.1 % (2-12); NEUTROPHILS # (AUTO) 6.2 X10'3 (1.8-7.7); NEUTROPHILS % (AUTO) 59.3 % (42-75); PLATELET COUNT 134 X10'3 (140-440); RED BLOOD COUNT 3.02 X10'6 (4.70-6.10); RED CELL DISTRIBUTION WIDTH 18.7 % (11.5-14.5); WHITE BLOOD COUNT 10.5 X10'3 (4.5-11.0)
[2023-06-11 03:27] LABS: ALANINE AMINOTRANSFERASE 15 U/L (12-78); ALBUMIN 2.7 G/DL (3.4-5.0); ALBUMIN/GLOBULIN RATIO 0.5 (1.1-1.5); ALKALINE PHOSPHATASE 124 IU/L (46-116); ANION GAP 10 (8-16); ASPARTATE AMINO TRANSFERASE 16 U/L (10-37); BILIRUBIN,TOTAL 0.8 MG/DL (0.1-1.0); BLOOD UREA NITROGEN 22 MG/DL (7-18); BUN/CREATININE RATIO 21.8 (10.0-20.0); CALCIUM 8.7 MG/DL (8.5-10.1); CHLORIDE 99 MMOL/L (99-107); CREATININE 1.01 MG/DL (0.60-1.10); GLUCOSE 249 MG/DL (70-104); POTASSIUM 3.4 MMOL/L (3.5-5.1); SODIUM 134 MMOL/L (135-145); TOTAL CARBON DIOXIDE 25.2 MMOL/L (24-32); TOTAL PROTEIN 8.2 G/DL (6.4-8.2); eGFR 70 ML/MIN
[2023-06-11 03:43] LABS: GLUCOSE, URINE 100 mg/dl (Neg); KETONES,URINE TRACE mg/dl (Neg); LEUKOCYTE ESTERASE ,URINE NEGATIVE (Neg); NITRITES, URINE NEGATIVE (Neg); OCCULT BLOOD,URINE TRACE-INTACT (Neg); PH,URINE 5.5 (4.8-8.0); PROTEIN,URINE 100 mg/dl (Neg); UROBILINOGEN,URINE 0.2 E.U/dL (0.2-1.0)
[2023-06-11 03:50] LABS: CLARITY,URINE SLIGHTLY CLOUDY (Clear); UA COLLECTION TYPE STRAIGHT CATH
[2023-06-11 03:53] LABS: BACTERIA,URINE FEW /HPF (Neg); WBC,URINE 0-4 /HPF (0-4)
[2023-06-11 03:54] LABS: SQUAMOUS EPITHELIAL CELL,UR FEW /LPF (FEW); TRANSITIONAL EPI CELLS,URINE FEW /HPF
[2023-06-11 03:55] LABS: COLOR,URINE DARK YELLOW (Yellow); FINE GRANULAR CAST 0-3 /LPF (NEGATIVE)
[2023-06-11] MEDS ORDERED: azithromycin/NS 500mg/250ml 250 ML IV ONE (03:55)
[2023-06-11] MEDS ORDERED: CefTRIAXone/D5W-Rocephin 1gm 50 ML IV ONE (03:55)
[2023-06-11] MEDS ORDERED: iohexol 350MG/ML 100ml bottle IV ONE (03:57)
[2023-06-11] MEDS ORDERED: PIOG45TA65 PO (04:16)
[2023-06-11] MEDS ORDERED: DIPH-522 PO (04:16)
[2023-06-11 04:23] LABS: TOTAL CELLS COUNTED 100
[2023-06-11 04:24] LABS: ANISOCYTOSIS 2+; MICROCYTOSIS 1+; PLATELET ESTIMATE DECREASED; POLYCHROMASIA 1+
[2023-06-11 04:25] LABS: STOMATOCYTES 1+
[2023-06-11] MEDS ORDERED: ondansetron 4mg rapidly disintigrating tab PO ONE (04:25)
--- NOTE | 2023-06-11 04:34 | NUR ---
PT TO CT
--- NOTE | 2023-06-11 04:35 | NUR ---
PT DOES NOT WEAR OXYGEN AT HOME PER AT BEDSIDE. REMOVED OXYGEN TO SEE WHAT PT SPO2 MEASURES ON ROOM AIR. PT SPO2 DROPPED TO 88% ON ROOM AIR. PLACED ON 2L NC OXYGEN AND SPO2 INCREASED TO 94%
[2023-06-11] MEDS ORDERED: LOPE-144 (05:45)
--- NOTE | 2023-06-11 05:56 | NUR ---
per , pt has account with [employer] set up for transport if discharged home.
[2023-06-11 06:41] LABS: ETHANOL < 10 MG/DL (<10)
--- NOTE | 2023-06-11 06:52 | NUR ---
Critical lab called Troponin 480. Dr. Fajardo informed.
[2023-06-11] MEDS ORDERED: aspirin 81mg tab.chew PO ONE (08:25)
--- NOTE | 2023-06-11 08:28 | NUR ---
CRITICAL LAB AUE TROP 601 DR. LIN NOTIFIED.
[2023-06-11] MEDS ORDERED: magnesium hydroxide 30ml (MOM) UD suspension PO PRN (09:35)
[2023-06-11] MEDS ORDERED: magnesium Cl slow-release 64mg tablet PO PRN (09:35)
[2023-06-11] MEDS ORDERED: magnesium 2GM in 50ml NS 50 ML IV PRN (09:35)
[2023-06-11] MEDS ORDERED: potassium Cl 40MEQ/1/2NS 520ml 520 ML IV PRN (09:35)
[2023-06-11] MEDS ORDERED: potassium Cl 20 mEq SR tablet PO PRN (09:35)
[2023-06-11] MEDS ORDERED: acetaminophen 325mg tablet PO PRN (09:35)
[2023-06-11] MEDS ORDERED: magnesium 4gm in 100ml NS 100 ML IV PRN (09:35)
[2023-06-11] MEDS ORDERED: morphine 2 MG/ML inj. syringe IV PRN ×2 (09:35)
[2023-06-11] MEDS ORDERED: ondansetron/PF 4mg/2ml inj IV PRN (09:35)
[2023-06-11] MEDS ORDERED: mag hydrox/Alum hydrox/simeth 30ml oral suspension PO PRN (09:35)
[2023-06-11 09:54] LABS: MAGNESIUM 1.9 MG/DL (1.5-2.4); POTASSIUM 3.7 MMOL/L (3.5-5.1)
[2023-06-11] MEDS: normal saline 1000ml 1,000 ML IV SCH ×2 (10:33→19:35)
[2023-06-11] MEDS: metoprolol succinate 25mg (24-HOUR) SR. Tablet PO SCH (10:45)
[2023-06-11] MEDS: tamsulosin 0.4mg capsule PO SCH (10:45)
[2023-06-11] MEDS: clopidogrel 75mg tablet PO SCH (10:46)
[2023-06-11 11:44] LABS: % IRON SATURATION 6 % (11-46); IRON 15 UG/DL (53-167); TOTAL IRON BINDING CAPACITY 260 UG/DL (259-388)
--- NOTE | 2023-06-11 12:45 | NUR ---
Relieving primary RN for lunch - patient has no needs at this time. Family at bedside.
--- NOTE | 2023-06-11 15:05 | NUR ---
Pt's urine newsome red.
[2023-06-11] MEDS: HYDROcodone/acetaminophen 5mg/325mg tablet PO PRN (18:07)
[2023-06-11] MEDS ORDERED: dextrose 50%-water 50ml dispensing syringe IV PRN ×2 (19:35)
[2023-06-11] MEDS ORDERED: DEXTROSE 15 GM of carb/4 tabs (each vial/BOTTLE has 4 tablets) PO PRN ×2 (19:35)
[2023-06-11] MEDS ORDERED: MESSAGE TO PHARMACY PO ONE (19:35)
[2023-06-11] MEDS ORDERED: insulin Lispro (HumaLOG) vial - multi-dose SQ SCH (19:35)
[2023-06-11] MEDS ORDERED: glucagon, human recombinant 1mg kit SUBCUT PRN (19:35)
[2023-06-11] MEDS: docusate sod 100mg capsule PO SCH (19:45)
[2023-06-11] MEDS: venlafaxine 37.5mg tablet PO SCH (19:46)
[2023-06-11] MEDS: potassium Cl 20 mEq SR tablet PO PRN (19:48)
[2023-06-11] MEDS: heparin, porcine 5000 units/ml vial SQ SCH (19:53)
[2023-06-11 19:55] LABS: HEMOGLOBIN A1C 6.2 % (4.5-6.2)
[2023-06-11] MEDS: K and/or MAG REPLACEMENT MC SCH (19:59)
[2023-06-11] MEDS: atorvastatin 20mg tablet PO SCH (20:18)
[2023-06-11] MEDS ORDERED: insulin glargine (Lantus) pen - multi-dose SQ SCH ×2 (21:00)
--- NOTE | 2023-06-11 22:22 | NUR ---
notified of pt passing blood in urine, New order is to hold all anti coagulant med.
[2023-06-12] VITALS (7 sets, daily range): BP systolic 128–143; BP diastolic 54–84; PULSE 92–106; RESP 16–30; TEMP 97–97.8; O2SAT 23–99
[2023-06-12] MEDS: normal saline 1000ml 1,000 ML IV SCH ×2 (00:07→19:21)
[2023-06-12] MEDS: HYDROcodone/acetaminophen 5mg/325mg tablet PO PRN ×3 (03:16→17:44)
[2023-06-12] MEDS: potassium Cl 20 mEq SR tablet PO PRN (03:16)
[2023-06-12 06:24] LABS: BASOPHILS % (AUTO) 0.1 % (0-1); EOSINOPHILS % (AUTO) 0.2 % (0-6); HEMATOCRIT 23.4 % (42.0-52.0); HEMOGLOBIN 7.6 g/dl (14.0-17.9); LYMPHOCYTES # (AUTO) 0.9 X10'3 (1.1-4.8); LYMPHOCYTES % (AUTO) 10.9 % (21-51); MEAN CORPUSCULAR HEMOGLOBIN 25.5 PG (27.0-31.0); MEAN CORPUSCULAR HGB CONC 32.4 g/dL (33.0-36.5); MEAN CORPUSCULAR VOLUME 78.5 FL (78-98); MEAN PLATELET VOLUME 8.5 FL (7.4-10.4); MONOCYTES # (AUTO) 2.2 X10'3 (0-0.9); MONOCYTES % (AUTO) 27.8 % (2-12); NEUTROPHILS # (AUTO) 4.8 X10'3 (1.8-7.7); PLATELET COUNT 123 X10'3 (140-440); RED BLOOD COUNT 2.98 X10'6 (4.70-6.10); RED CELL DISTRIBUTION WIDTH 19.3 % (11.5-14.5); WHITE BLOOD COUNT 7.9 X10'3 (4.5-11.0)
--- NOTE | 2023-06-12 06:24 | NUR ---
Problems reprioritized. Patient report given, questions answered & plan of care reviewed with Vilma
[2023-06-12 06:43] LABS: ALANINE AMINOTRANSFERASE 12 U/L (12-78); ALBUMIN 2.3 G/DL (3.4-5.0); ALBUMIN/GLOBULIN RATIO 0.5 (1.1-1.5); ALKALINE PHOSPHATASE 103 IU/L (46-116); ANION GAP 8 (8-16); ASPARTATE AMINO TRANSFERASE 19 U/L (10-37); BILIRUBIN,TOTAL 0.6 MG/DL (0.1-1.0); BLOOD UREA NITROGEN 23 MG/DL (7-18); CALCIUM 8.4 MG/DL (8.5-10.1); CHLORIDE 103 MMOL/L (99-107); CHOL/HDL RATIO 2.3 (0.00-4.99); CHOLESTEROL 74 MG/DL (0-200); CREATININE 0.96 MG/DL (0.60-1.10); GLUCOSE 171 MG/DL (70-104); HDL CHOLESTEROL 32 MG/DL (35-60); LDL CHOLESTEROL 22 MG/DL (50-100); MAGNESIUM 1.9 MG/DL (1.5-2.4); POTASSIUM 3.5 MMOL/L (3.5-5.1); SODIUM 136 MMOL/L (135-145); TOTAL CARBON DIOXIDE 25.4 MMOL/L (24-32); TOTAL PROTEIN 7.1 G/DL (6.4-8.2); TRIGLYCERIDES 110 MG/DL (20-135); eGFR 74 ML/MIN
--- NOTE | 2023-06-12 07:09 | NUR ---
Patient in room PCU 3027. I have received report from Renee LABOY and had the opportunity to ask questions and assume patient care.
[2023-06-12] MEDS ORDERED: levoTHYROXINE 75mcg tablet PO SCH (07:30)
[2023-06-12] MEDS: tamsulosin 0.4mg capsule PO SCH (07:38)
[2023-06-12] MEDS: metoprolol succinate 25mg (24-HOUR) SR. Tablet PO SCH (07:38)
[2023-06-12] MEDS: docusate sod 100mg capsule PO SCH (07:38)
[2023-06-12] MEDS ORDERED: pantoprazole 40 MG vial IV SCH (08:00)
[2023-06-12] MEDS: K and/or MAG REPLACEMENT MC SCH ×2 (08:00→20:00)
[2023-06-12] MEDS ORDERED: morphine 2 MG/ML inj. syringe IV PRN ×2 (08:30)
[2023-06-12] MEDS: venlafaxine 37.5mg tablet PO SCH ×2 (08:49→20:54)
[2023-06-12] MEDS: clopidogrel 75mg tablet PO SCH (08:51)
[2023-06-12] MEDS: heparin, porcine 5000 units/ml vial SQ SCH (08:51)
[2023-06-12] MEDS: pantoprazole 40mg Tablet.DR PO SCH (08:51)
[2023-06-12] MEDS: NUT.TX.GLUC.INTOLER,LAC-FR,SOY (GLUCERNA) 237 ML PO SCH ×2 (13:33→18:34)
[2023-06-12 16:59] LABS: COLOR,URINE YELLOW (Yellow); GLUCOSE, URINE 100 mg/dl (Neg); KETONES,URINE NEGATIVE (Neg); LEUKOCYTE ESTERASE ,URINE NEGATIVE (Neg); NITRITES, URINE NEGATIVE (Neg); OCCULT BLOOD,URINE MODERATE (Neg); PROTEIN,URINE 30 mg/dl (Neg); UROBILINOGEN,URINE 0.2 E.U/dL (0.2-1.0)
[2023-06-12 17:05] LABS: CLARITY,URINE SLIGHTLY CLOUDY (Clear); UA COLLECTION TYPE VOIDED
[2023-06-12 17:08] LABS: BACTERIA,URINE FEW /HPF (Neg); MUCUS STRANDS NONE SEEN /LPF (Neg); RBC,URINE 20-50 /HPF (0-2); SQUAMOUS EPITHELIAL CELL,UR FEW /LPF (FEW); WBC,URINE 0-4 /HPF (0-4)
--- NOTE | 2023-06-12 17:49 | NUR ---
patient seen by DR Oreilly, discussion in room with spouse. Patient does not want any invasive procedure with regards cardiology at this time.
--- NOTE | 2023-06-12 18:37 | NUR ---
Problems reprioritized. Patient report given, questions answered & plan of care reviewed with Shanice RN.
[2023-06-12] MEDS: atorvastatin 20mg tablet PO SCH (20:54)
[2023-06-13 02:00] VITALS: BP 122/76; PULSE 107; RESP 26; TEMP 97.9; O2SAT 99
--- NOTE | 2023-06-13 06:34 | NUR ---
Patient in room PCU 3027. I have received report from Shanice RN and had the opportunity to ask questions and assume patient care.
[2023-06-13 07:00] VITALS: BP 138/69; PULSE 90; RESP 18; TEMP 97.6; O2SAT 100
--- NOTE | 2023-06-13 07:02 | NUR ---
This RN has reviewed and agrees w/the [employer] T[employer] CLEANER's physical assessment of this pt.
[2023-06-13 07:09] LABS: BASOPHILS % (AUTO) 0.5 % (0-1); EOSINOPHILS % (AUTO) 0.6 % (0-6); HEMATOCRIT 23.2 % (42.0-52.0); HEMOGLOBIN 7.5 g/dl (14.0-17.9); LYMPHOCYTES # (AUTO) 0.8 X10'3 (1.1-4.8); LYMPHOCYTES % (AUTO) 16.6 % (21-51); MEAN CORPUSCULAR HEMOGLOBIN 25.6 PG (27.0-31.0); MEAN CORPUSCULAR HGB CONC 32.3 g/dL (33.0-36.5); MEAN CORPUSCULAR VOLUME 79.2 FL (78-98); MEAN PLATELET VOLUME 8.5 FL (7.4-10.4); MONOCYTES # (AUTO) 1.2 X10'3 (0-0.9); MONOCYTES % (AUTO) 25.5 % (2-12); NEUTROPHILS # (AUTO) 2.6 X10'3 (1.8-7.7); NEUTROPHILS % (AUTO) 56.8 % (42-75); PLATELET COUNT 138 X10'3 (140-440); RED BLOOD COUNT 2.92 X10'6 (4.70-6.10); RED CELL DISTRIBUTION WIDTH 19.1 % (11.5-14.5); WHITE BLOOD COUNT 4.6 X10'3 (4.5-11.0)
[2023-06-13] MEDS: tamsulosin 0.4mg capsule PO SCH (07:18)
[2023-06-13] MEDS: venlafaxine 37.5mg tablet PO SCH (07:19)
[2023-06-13] MEDS: clopidogrel 75mg tablet PO SCH (07:19)
[2023-06-13] MEDS: pantoprazole 40mg Tablet.DR PO SCH (07:19)
[2023-06-13] MEDS ORDERED: levoTHYROXINE 100mcg tablet PO SCH (07:30)
[2023-06-13 07:32] LABS: POTASSIUM 3.7 MMOL/L (3.5-5.1)
[2023-06-13] MEDS: NUT.TX.GLUC.INTOLER,LAC-FR,SOY (GLUCERNA) 237 ML PO SCH ×2 (08:00→13:03)
[2023-06-13] MEDS ORDERED: metoprolol succinate 25mg (24-HOUR) SR. Tablet PO SCH (08:00)
[2023-06-13] MEDS ORDERED: heparin, porcine 5000 units/ml vial SQ SCH (08:00)
[2023-06-13] MEDS: K and/or MAG REPLACEMENT MC SCH (08:00)
[2023-06-13] MEDS ORDERED: ferrous gluconate 324mg tablet PO SCH (08:00)
[2023-06-13] MEDS: normal saline 1000ml 1,000 ML IV SCH (09:51)
[2023-06-13 12:02] VITALS: BP 134/58; PULSE 55; RESP 16; TEMP 98.8; O2SAT 97
[2023-06-13] MEDS: HYDROcodone/acetaminophen 5mg/325mg tablet PO PRN (12:56)
[2023-06-13] MEDS ORDERED: LEVO100T9 PO (13:16)
[2023-06-13] MEDS ORDERED: FERR324T3 PO (13:16)
[2023-06-13 13:56] VITALS: RESP 16
--- NOTE | 2023-06-13 18:52 | NUR ---
Patient medicated x2 for pain. MOM given BM x3. patient seen by Dr Hansen. Is for discharge. ALl Dc instructions given to patient and . [facility]
== END 2023-06-13 17:43 | disposition home health service (06) | DRG 189 ==
LOC: ER 02:37 → ED HOLD 09:40 → EDBEDREQ 15:25 → PCU 3S 16:50
PROVIDERS: ADMIT Internal Medicine; ATTEND Internal Medicine
PROC: 30233N1 Transfusion of Nonautologous Red Blood Cells into Peripheral Vein, Percutaneous Approach (ICD-10-PCS; principal; 2023-06-11)
PROC: B32T1ZZ Computerized Tomography (CT Scan) of Left Pulmonary Artery using Low Osmolar Contrast (ICD-10-PCS; 2023-06-11)
PROC: B3201ZZ Computerized Tomography (CT Scan) of Thoracic Aorta using Low Osmolar Contrast (ICD-10-PCS; 2023-06-11)
PROC: B32S1ZZ Computerized Tomography (CT Scan) of Right Pulmonary Artery using Low Osmolar Contrast (ICD-10-PCS; 2023-06-11)
PROC: B4201ZZ Computerized Tomography (CT Scan) of Abdominal Aorta using Low Osmolar Contrast (ICD-10-PCS; 2023-06-11)
DX: J96.01 Acute respiratory failure with hypoxia (principal); I21.4 Non-ST elevation (NSTEMI) myocardial infarction; E43 Unspecified severe protein-calorie malnutrition; J90 Pleural effusion, not elsewhere classified; Z20.822 Contact with and (suspected) exposure to COVID-19; E11.621 Type 2 diabetes mellitus with foot ulcer; E78.00 Pure hypercholesterolemia, unspecified; I10 Essential (primary) hypertension; I34.81 Nonrheumatic mitral (valve) annulus calcification; Z96.643 Presence of artificial hip joint, bilateral; Z96.653 Presence of artificial knee joint, bilateral; F32.A Depression, unspecified; I35.0 Nonrheumatic aortic (valve) stenosis; F41.9 Anxiety disorder, unspecified; K21.9 Gastro-esophageal reflux disease without esophagitis; D72.821 Monocytosis (symptomatic); R77.8 Other specified abnormalities of plasma proteins; D50.9 Iron deficiency anemia, unspecified; D69.6 Thrombocytopenia, unspecified; E11.51 Type 2 diabetes mellitus with diabetic peripheral angiopathy without gangrene; E06.3 Autoimmune thyroiditis; L97.509 Non-pressure chronic ulcer of other part of unspecified foot with unspecified severity; N40.0 Benign prostatic hyperplasia without lower urinary tract symptoms; Z74.01 Bed confinement status; Z79.4 Long term (current) use of insulin; Z83.3 Family history of diabetes mellitus; Z86.73 Personal history of transient ischemic attack (TIA), and cerebral infarction without residual deficits; Z87.891 Personal history of nicotine dependence; Z90.49 Acquired absence of other specified parts of digestive tract; Z82.49 Family history of ischemic heart disease and other diseases of the circulatory system; Z79.899 Other long term (current) drug therapy; Z89.431 Acquired absence of right foot; Z79.82 Long term (current) use of aspirin; Z68.31 Body mass index [BMI] 31.0-31.9, adult
CPT/HCPCS: 36415; 36430; 71045; 71275; 74177; 76770; 80053; 80061; 80320; 81001; 82607; 82948; 83036; 83540; 83550; 83605; 83735; 83880; 84132; 84145; 84443; 84484; 85007; 85025; 86870; 86885; 86900; 86901; 86902; 86905; 86922; 87040; 87081; 87811; 92508; 92616; 93005; 93306; 99285; C1758; G0378; J0456; J0696; J1644; J1815; J2270; J3490; J7030; J7040; P9016; Q9967

== ENCOUNTER 2024-02-17 18:55 | Inpatient (IN) | payer MEDICARE, BC ==
[~2024-02-17] VITALS: Ht 195.6 cm; Wt 97.1 kg
[~2024-02-17 18:55] MED LIST changes: +ATOR-411 PO; -ATOR40TA7 PO; +DILT30TA2 PO; +DIPH-522 PO; +FERR324T23 PO; +FURO40TA4 PO; -HYDR-3972 PO; -INSU100I8 SQ; -LACT1CAP60 PO; +LAN0.125T PO; +LEVO-65 PO; +LEVO100C4 PO; -LEVO100T PO; +LEVO100T9 PO; -METF-438 PO; +METR-159 PO; +ONDA-103 PO; +OXYC1TAB17 PO; +PIOG45TA65 PO; +QUET25TA36 PO
[2024-02-17 19:27] VITALS: PULSE 96; RESP 24; O2SAT 100
[2024-02-17] MEDS: ipratropium/albuterol 3ml nebule NEB ONE (19:29)
[2024-02-17 19:31] VITALS: PULSE 95; RESP 20; O2SAT 100
[2024-02-17] MEDS: methylPREDNISolone sod succ 125mg/2ml vial IV ONE (19:31)
[2024-02-17] MEDS: normal saline 500ml IV soln 500 ML IV ONE (19:41)
[2024-02-17] MEDS: normal saline 1000ML IV soln IVB ONE (19:41)
[2024-02-17 19:52] LABS: ALBUMIN 2.5 G/DL (3.4-5.0); ANION GAP 7 (8-16); BLOOD UREA NITROGEN 23 MG/DL (7-18); BUN/CREATININE RATIO 26.4 (10.0-20.0); CALCIUM 8.6 MG/DL (8.5-10.1); CHLORIDE 97 MMOL/L (99-107); CREATININE 0.87 MG/DL (0.60-1.10); GLUCOSE 152 MG/DL (70-104); POTASSIUM 3.1 MMOL/L (3.5-5.1); PRO BRAIN NATRIURETIC PEPTIDE 10098 PG/ML (0-450); SODIUM 135 MMOL/L (135-145); TOTAL CARBON DIOXIDE 31.3 MMOL/L (24-32); eCRCL 77 ML/MIN; eGFR 83 ML/MIN
[2024-02-17 19:53] LABS: ABG BASE EXCESS 6.6 mmol/L (-2.0-2.0); ABG HCO3 31.9 mmol/L (22.0-26.0); ABG OXYGEN SATURATION 99.6 % (94-97); ABG PCO2 (T) 48.3 mmHg (35.0-48.0); ABG PH (T) 7.434 (7.340-7.440); ALLEN'S TEST Modified; FCOHb 1.7 % (0.0-3.9); FHHb 0.4 % (0.0-5.0); FMetHb 0.4 % (0.0-1.5); FO2Hb 97.5 % (94-97); MODE BIPAP; PATIENT TEMPERATURE 36.1
[2024-02-17] MEDS ORDERED: LORazepam 2 mg/ml vial IV ONE (20:05)
[2024-02-17 20:10] LABS: BASOPHILS % (AUTO) 0.4 % (0-1); EOSINOPHILS % (AUTO) 0.1 % (0-6); LYMPHOCYTES # (AUTO) 0.9 X10'3 (1.1-4.8)
[2024-02-17 20:11] LABS: HEMATOCRIT 23.9 % (42.0-52.0); LYMPHOCYTES % (AUTO) 12.8 % (21-51); MEAN CORPUSCULAR HEMOGLOBIN 30.2 PG (27.0-31.0); MEAN CORPUSCULAR HGB CONC 33.6 g/dL (33.0-36.5); MEAN CORPUSCULAR VOLUME 89.9 FL (78-98); MEAN PLATELET VOLUME 8.6 FL (7.4-10.4); MONOCYTES # (AUTO) 3.2 X10'3 (0-0.9); MONOCYTES % (AUTO) 46.1 % (2-12); NEUTROPHILS # (AUTO) 2.8 X10'3 (1.8-7.7); NEUTROPHILS % (AUTO) 40.6 % (42-75); PLATELET COUNT 141 X10'3 (140-440); RED BLOOD COUNT 2.66 X10'6 (4.70-6.10); RED CELL DISTRIBUTION WIDTH 20.3 % (11.5-14.5); WHITE BLOOD COUNT 6.8 X10'3 (4.5-11.0)
[2024-02-17 20:16] VITALS: PULSE 88; RESP 20; O2SAT 100
[2024-02-17 20:45] LABS: NUCLEATED RED BLOOD CELLS 1 /100WBC (0-0); PLATELET ESTIMATE NORMAL; TOTAL CELLS COUNTED 100
[2024-02-17 20:46] LABS: ANISOCYTOSIS 3+; HYPERSEGMENTED NEUTROPHILS FEW; POLYCHROMASIA 1+; STOMATOCYTES 1+
[2024-02-17] MEDS ORDERED: albuterol 2.5 MG/3 ML nebule CONTNEB PRN (21:30)
[2024-02-17] MEDS ORDERED: potassium Cl 40MEQ/1/2NS 520ml 520 ML IV PRN (21:30)
[2024-02-17] MEDS ORDERED: potassium Cl 20 mEq SR tablet PO PRN (21:30)
[2024-02-17] MEDS ORDERED: magnesium Cl slow-release 64mg tablet PO PRN (21:30)
[2024-02-17] MEDS ORDERED: magnesium 4gm in 100ml NS 100 ML IV PRN (21:30)
[2024-02-17] MEDS ORDERED: magnesium 2GM in 50ml NS 50 ML IV PRN (21:30)
[2024-02-17] MEDS ORDERED: mag hydrox/Alum hydrox/simeth 30ml oral suspension PO PRN (21:30)
[2024-02-17] MEDS ORDERED: aminophylline 500mg/20ml vial IV ONE (21:40)
[2024-02-17] MEDS ORDERED: aminophylline 500mg/20ml vial IV PRN (22:30)
[2024-02-18] VITALS (7 sets, daily range): BP systolic 109–133; BP diastolic 64–69; PULSE 80–100; RESP 18–24; TEMP 97.3–98.2; O2SAT 90–99
[2024-02-18] MEDS ORDERED: aminophylline 500mg/20ml vial IV PRN (00:50)
[2024-02-18 01:00] LABS: PRO BRAIN NATRIURETIC PEPTIDE 10501 PG/ML (0-450)
[2024-02-18] MEDS: REMDESIVIR 200 MG in NS 100ml IVPB Loading dose IV ONE (01:06)
[2024-02-18] MEDS: dexamethasone 4mg/ml inj IV SCH (03:59)
[2024-02-18] MEDS: pantoprazole 40 MG vial IV SCH ×2 (08:00→08:14)
[2024-02-18] MEDS ORDERED: heparin, porcine 5000 units/ml vial SQ SCH (08:00)
[2024-02-18] MEDS: K and/or MAG REPLACEMENT MC SCH (08:00)
[2024-02-18] MEDS: CefTRIAXone 2gm/D5W 50ml BAG 50 ML IV SCH (08:14)
[2024-02-18] MEDS: enoxaparin 40mg/0.4ml syringe SUBCUT SCH (08:14)
[2024-02-18] MEDS: potassium Cl 20 mEq SR tablet PO PRN (08:15)
[2024-02-18] MEDS: docusate sod 100mg capsule PO SCH (08:15)
[2024-02-18] MEDS: guaiFENesin ER 600mg tablet PO SCH (08:15)
[2024-02-18] MEDS: POTASSIUM BICARB 20meq eff tab 20 MEQ TABLET.EFF PO SCH (08:16)
[2024-02-18 09:18] LABS: ALBUMIN 2.3 G/DL (3.4-5.0); ANION GAP 12 (8-16); CALCIUM 8.4 MG/DL (8.5-10.1); CHLORIDE 97 MMOL/L (99-107); CREATININE 0.94 MG/DL (0.60-1.10); GLUCOSE 253 MG/DL (70-104); MAGNESIUM 2.3 MG/DL (1.5-2.4); SODIUM 136 MMOL/L (135-145); eCRCL 71 ML/MIN; eGFR 76 ML/MIN
[2024-02-18 09:20] LABS: BLOOD UREA NITROGEN 30 MG/DL (7-18); BUN/CREATININE RATIO 31.9 (10.0-20.0); POTASSIUM 3.7 MMOL/L (3.5-5.1)
[2024-02-18] MEDS: azithromycin/NS 500mg/250ml 250 ML IV SCH (10:44)
[2024-02-18 11:46] LABS: BASOPHILS % (AUTO) 0.4 % (0-1); EOSINOPHILS % (AUTO) 0.1 % (0-6); HEMATOCRIT 22.7 % (42.0-52.0); HEMOGLOBIN 7.6 g/dl (14.0-17.9); LYMPHOCYTES # (AUTO) 0.2 X10'3 (1.1-4.8); LYMPHOCYTES % (AUTO) 18.8 % (21-51); MEAN CORPUSCULAR HEMOGLOBIN 30.3 PG (27.0-31.0); MEAN CORPUSCULAR HGB CONC 33.6 g/dL (33.0-36.5); MEAN CORPUSCULAR VOLUME 90.2 FL (78-98); MEAN PLATELET VOLUME 8.7 FL (7.4-10.4); MONOCYTES # (AUTO) 0.3 X10'3 (0-0.9); MONOCYTES % (AUTO) 20.5 % (2-12); NEUTROPHILS # (AUTO) 0.8 X10'3 (1.8-7.7); NEUTROPHILS % (AUTO) 60.2 % (42-75); PLATELET COUNT 130 X10'3 (140-440); RED BLOOD COUNT 2.52 X10'6 (4.70-6.10); RED CELL DISTRIBUTION WIDTH 20.9 % (11.5-14.5); WHITE BLOOD COUNT 1.3 X10'3 (4.5-11.0)
[2024-02-18 12:15] LABS: NUCLEATED RED BLOOD CELLS 3 /100WBC (0-0); TOTAL CELLS COUNTED 100
[2024-02-18 12:16] LABS: ANISOCYTOSIS 3+; PLATELET ESTIMATE DECREASED; POLYCHROMASIA 1+
[2024-02-18] MEDS: acetaminophen 325mg tablet PO PRN (13:47)
[2024-02-18] MEDS ORDERED: furosemide 20 MG/2 ML vial IV SCH (19:35)
[2024-02-18] MEDS: PERFLUTREN PROTEIN-A MICROSPHR (Optison) 0.22 MG/ML 3ML VIAL IV ONE (21:04)
[2024-02-18] MEDS: REMDESIVIR 100MG/NS 100ML ADV 100 ML IV SCH (21:29)
[2024-02-18] MEDS: furosemide 20 MG/2 ML vial IV SCH (21:41)
[2024-02-18] MEDS ORDERED: glucagon, human recombinant 1mg kit SUBCUT PRN (22:45)
[2024-02-18] MEDS ORDERED: DEXTROSE 15 GM of carb/4 tabs (each vial/BOTTLE has 4 tablets) PO PRN ×2 (22:45)
[2024-02-18] MEDS ORDERED: dextrose 50%-water 50ml dispensing syringe IV PRN ×2 (22:45)
[2024-02-18] MEDS: insulin Lispro (HumaLOG) vial - multi-dose SQ SCH (23:26)
[2024-02-18] MEDS: insulin glargine (Lantus) pen - multi-dose SQ SCH (23:30)
[2024-02-19] VITALS (7 sets, daily range): BP systolic 106–138; BP diastolic 54–78; PULSE 60–111; RESP 16–24; TEMP 96.9–98.1; O2SAT 93–99
[2024-02-19] MEDS: morphine 2 MG/ML inj. syringe IV PRN (02:26)
[2024-02-19] MEDS ORDERED: dextrose 50%-water 50ml dispensing syringe IV PRN ×2 (03:25)
[2024-02-19] MEDS ORDERED: DEXTROSE 15 GM of carb/4 tabs (each vial/BOTTLE has 4 tablets) PO PRN ×2 (03:25)
[2024-02-19] MEDS ORDERED: glucagon, human recombinant 1mg kit SUBCUT PRN (03:25)
[2024-02-19] MEDS: oxyCODONE/APAP 10/325mg tablet PO ONE (05:30)
[2024-02-19] MEDS: insulin Lispro (HumaLOG) vial - multi-dose SQ SCH (07:00)
[2024-02-19 07:44] LABS: EOSINOPHILS % (AUTO) 0 % (0-6); MEAN CORPUSCULAR HEMOGLOBIN 30.4 PG (27.0-31.0); MEAN CORPUSCULAR HGB CONC 33.5 g/dL (33.0-36.5); MONOCYTES # (AUTO) 0.5 X10'3 (0-0.9); NEUTROPHILS # (AUTO) 0.9 X10'3 (1.8-7.7); WHITE BLOOD COUNT 1.6 X10'3 (4.5-11.0)
[2024-02-19 07:47] LABS: BASOPHILS % (AUTO) 0.2 % (0-1); HEMATOCRIT 22.3 % (42.0-52.0); HEMOGLOBIN 7.5 g/dl (14.0-17.9); LYMPHOCYTES # (AUTO) 0.3 X10'3 (1.1-4.8); LYMPHOCYTES % (AUTO) 16.7 % (21-51); MEAN CORPUSCULAR VOLUME 90.6 FL (78-98); MEAN PLATELET VOLUME 8.5 FL (7.4-10.4); MONOCYTES % (AUTO) 30.4 % (2-12); NEUTROPHILS % (AUTO) 52.7 % (42-75); PLATELET COUNT 147 X10'3 (140-440); RED BLOOD COUNT 2.46 X10'6 (4.70-6.10); RED CELL DISTRIBUTION WIDTH 20.9 % (11.5-14.5)
[2024-02-19 07:55] LABS: ALBUMIN 2.2 G/DL (3.4-5.0); ANION GAP 1 (8-16); BLOOD UREA NITROGEN 34 MG/DL (7-18); BUN/CREATININE RATIO 39.5 (10.0-20.0); CALCIUM 7.9 MG/DL (8.5-10.1); CHLORIDE 97 MMOL/L (99-107); CREATININE 0.86 MG/DL (0.60-1.10); GLUCOSE 270 MG/DL (70-104); MAGNESIUM 2.1 MG/DL (1.5-2.4); POTASSIUM 3.5 MMOL/L (3.5-5.1); SODIUM 132 MMOL/L (135-145); TOTAL CARBON DIOXIDE 33.6 MMOL/L (24-32); eCRCL 78 ML/MIN; eGFR 84 ML/MIN
[2024-02-19 08:21] LABS: ANISOCYTOSIS 3+; PLATELET ESTIMATE DECREASED; POLYCHROMASIA 1+; TOTAL CELLS COUNTED 100
[2024-02-19] MEDS: tamsulosin 0.4mg capsule PO SCH (08:40)
[2024-02-19] MEDS ORDERED: non-formulary drug (Ondansetron HCl 1 TAB) PO PRN (08:40)
[2024-02-19] MEDS: pioglitazone 45mg tablet PO SCH (08:40)
[2024-02-19] MEDS: metoprolol succinate 25mg (24-HOUR) SR. Tablet PO SCH (09:44)
[2024-02-19] MEDS: clopidogrel 75mg tablet PO SCH (09:44)
[2024-02-19] MEDS: digoxin 125mcg (0.125mg) tablet PO SCH (09:45)
[2024-02-19] MEDS: diphenoxylate/atropine tablet (Lomotil) PO SCH (12:38)
[2024-02-19] MEDS: diltiazem 30mg tablet PO SCH (14:14)
[2024-02-19] MEDS: LORazepam 0.5 MG tablet PO PRN (16:53)
[2024-02-19] MEDS: magnesium hydroxide 30ml (MOM) UD suspension PO PRN (16:57)
[2024-02-19] MEDS: lactose-reduced food (Ensure Enlive) - 237ml bottle PO SCH (18:00)
[2024-02-19] MEDS: oxyCODONE/APAP 10/325mg tablet PO PRN (19:04)
[2024-02-19] MEDS: insulin glargine (Lantus) pen - multi-dose SQ SCH (21:41)
[2024-02-19] MEDS: furosemide 40mg tablet PO SCH (22:36)
[2024-02-19] MEDS: atorvastatin 20mg tablet PO SCH (22:36)
[2024-02-19] MEDS: QUEtiapine 25mg tablet PO PRN (22:39)
[2024-02-19] MEDS: venlafaxine 37.5mg tablet PO SCH (23:02)
[2024-02-20] VITALS (8 sets, daily range): BP systolic 105–136; BP diastolic 45–72; PULSE 95–105; RESP 18–25; TEMP 96.9–97.8; O2SAT 96–100
[2024-02-20] MEDS: dicyclomine 10 MG capsule PO ONE (00:49)
[2024-02-20] MEDS: levoTHYROXINE 100mcg tablet PO SCH (07:36)
[2024-02-20] MEDS ORDERED: LEVOTHYROXINE SODIUM PO SCH (08:00)
[2024-02-20] MEDS ORDERED: OMEPRAZOLE PO SCH (08:00)
[2024-02-20 08:10] LABS: BASOPHILS % (AUTO) 0.1 % (0-1); EOSINOPHILS % (AUTO) 0 % (0-6); HEMATOCRIT 25.3 % (42.0-52.0); HEMOGLOBIN 8.3 g/dl (14.0-17.9); LYMPHOCYTES # (AUTO) 0.3 X10'3 (1.1-4.8); LYMPHOCYTES % (AUTO) 15.8 % (21-51); MEAN CORPUSCULAR HEMOGLOBIN 30.1 PG (27.0-31.0); MEAN CORPUSCULAR HGB CONC 32.6 g/dL (33.0-36.5); MEAN CORPUSCULAR VOLUME 92.2 FL (78-98); MEAN PLATELET VOLUME 8.7 FL (7.4-10.4); MONOCYTES # (AUTO) 0.4 X10'3 (0-0.9); MONOCYTES % (AUTO) 22.7 % (2-12); NEUTROPHILS # (AUTO) 1.2 X10'3 (1.8-7.7); NEUTROPHILS % (AUTO) 61.4 % (42-75); PLATELET COUNT 158 X10'3 (140-440); RED BLOOD COUNT 2.75 X10'6 (4.70-6.10); RED CELL DISTRIBUTION WIDTH 20.9 % (11.5-14.5); WHITE BLOOD COUNT 1.9 X10'3 (4.5-11.0)
[2024-02-20 08:14] LABS: ALBUMIN 2.5 G/DL (3.4-5.0); ANION GAP 4 (8-16); BLOOD UREA NITROGEN 36 MG/DL (7-18); BUN/CREATININE RATIO 39.6 (10.0-20.0); CALCIUM 8.1 MG/DL (8.5-10.1); CHLORIDE 97 MMOL/L (99-107); CREATININE 0.91 MG/DL (0.60-1.10); GLUCOSE 283 MG/DL (70-104); MAGNESIUM 2.3 MG/DL (1.5-2.4); POTASSIUM 3.7 MMOL/L (3.5-5.1); SODIUM 135 MMOL/L (135-145); TOTAL CARBON DIOXIDE 34.1 MMOL/L (24-32); eCRCL 73 ML/MIN; eGFR 79 ML/MIN
[2024-02-20] MEDS: insulin Lispro (HumaLOG) vial - multi-dose SQ SCH ×2 (09:24→19:22)
[2024-02-20 10:24] LABS: TOTAL CELLS COUNTED 100
[2024-02-20 10:25] LABS: ANISOCYTOSIS 3+; PLATELET ESTIMATE NORMAL; POLYCHROMASIA FEW; STOMATOCYTES 1+
[2024-02-21] VITALS (9 sets, daily range): BP systolic 122–146; BP diastolic 72–82; PULSE 98–114; RESP 18–24; TEMP 96.6–97.8; O2SAT 96–99
[2024-02-21 03:37] LABS: ALBUMIN 2.5 G/DL (3.4-5.0); ANION GAP 8 (8-16); BLOOD UREA NITROGEN 37 MG/DL (7-18); BUN/CREATININE RATIO 36.3 (10.0-20.0); CALCIUM 8.5 MG/DL (8.5-10.1); CHLORIDE 97 MMOL/L (99-107); CREATININE 1.02 MG/DL (0.60-1.10); GLUCOSE 269 MG/DL (70-104); POTASSIUM 3.4 MMOL/L (3.5-5.1); SODIUM 137 MMOL/L (135-145); TOTAL CARBON DIOXIDE 32.2 MMOL/L (24-32); eCRCL 66 ML/MIN; eGFR 69 ML/MIN
[2024-02-21 03:39] LABS: HEMOGLOBIN 8.6 g/dl (14.0-17.9)
[2024-02-21 03:41] LABS: BASOPHILS % (AUTO) 0.3 % (0-1); EOSINOPHILS % (AUTO) 0.2 % (0-6); HEMATOCRIT 25.8 % (42.0-52.0); LYMPHOCYTES # (AUTO) 0.4 X10'3 (1.1-4.8); LYMPHOCYTES % (AUTO) 9.8 % (21-51); MEAN CORPUSCULAR HEMOGLOBIN 30.3 PG (27.0-31.0); MEAN CORPUSCULAR HGB CONC 33.3 g/dL (33.0-36.5); MEAN PLATELET VOLUME 8.8 FL (7.4-10.4); MONOCYTES % (AUTO) 25.9 % (2-12); NEUTROPHILS # (AUTO) 2.5 X10'3 (1.8-7.7); NEUTROPHILS % (AUTO) 63.8 % (42-75); PLATELET COUNT 185 X10'3 (140-440); RED BLOOD COUNT 2.84 X10'6 (4.70-6.10); RED CELL DISTRIBUTION WIDTH 21.7 % (11.5-14.5)
[2024-02-21 04:23] LABS: ANISOCYTOSIS 3+; NUCLEATED RED BLOOD CELLS 2 /100WBC (0-0); PLATELET ESTIMATE NORMAL; TOTAL CELLS COUNTED 100
[2024-02-21 04:29] LABS: ELLIPTOCYTES FEW; POIKILOCYTOSIS FEW; STOMATOCYTES 2+
[2024-02-21 04:30] LABS: HYPERSEGMENTED NEUTROPHILS 1+; LARGE PLATELETS FEW
[2024-02-21] MEDS ORDERED: potassium Cl 20 mEq SR tablet PO PRN (04:35)
[2024-02-21] MEDS ORDERED: magnesium Cl slow-release 64mg tablet PO PRN (04:35)
[2024-02-21] MEDS ORDERED: potassium Cl 40MEQ/1/2NS 520ml 520 ML IV PRN (04:35)
[2024-02-21] MEDS ORDERED: magnesium 2GM in 50ml NS 50 ML IV PRN (04:35)
[2024-02-21] MEDS ORDERED: magnesium 4gm in 100ml NS 100 ML IV PRN (04:35)
[2024-02-21] MEDS: K and/or MAG REPLACEMENT MC SCH (08:00)
[2024-02-21] MEDS: potassium Cl 20 mEq SR tablet PO PRN (08:10)
[2024-02-21] MEDS: ondansetron/PF 4mg/2ml inj IV PRN (10:07)
[2024-02-21] MEDS: insulin glargine (Lantus) pen - multi-dose SQ SCH (21:00)
[2024-02-22 02:00] VITALS: BP 124/68; PULSE 87; RESP 18; TEMP 97.7; O2SAT 98
[2024-02-22 07:00] VITALS: BP 100/55; PULSE 80; RESP 16; TEMP 98.6; O2SAT 97
[2024-02-22 07:12] LABS: EOSINOPHILS % (AUTO) 0.1 % (0-6); HEMOGLOBIN 7.5 g/dl (14.0-17.9); LYMPHOCYTES # (AUTO) 0.4 X10'3 (1.1-4.8); LYMPHOCYTES % (AUTO) 15.4 % (21-51); MEAN PLATELET VOLUME 8.4 FL (7.4-10.4); MONOCYTES # (AUTO) 0.6 X10'3 (0-0.9); NEUTROPHILS # (AUTO) 1.8 X10'3 (1.8-7.7)
[2024-02-22 07:15] LABS: BASOPHILS % (AUTO) 0.3 % (0-1); HEMATOCRIT 22.9 % (42.0-52.0); MEAN CORPUSCULAR HEMOGLOBIN 30.3 PG (27.0-31.0); MEAN CORPUSCULAR HGB CONC 32.9 g/dL (33.0-36.5); MEAN CORPUSCULAR VOLUME 92.2 FL (78-98); MONOCYTES % (AUTO) 22.6 % (2-12); NEUTROPHILS % (AUTO) 61.6 % (42-75); PLATELET COUNT 152 X10'3 (140-440); RED BLOOD COUNT 2.48 X10'6 (4.70-6.10); WHITE BLOOD COUNT 2.8 X10'3 (4.5-11.0)
[2024-02-22 07:18] LABS: ALBUMIN 2.2 G/DL (3.4-5.0); ANION GAP 2 (8-16); BLOOD UREA NITROGEN 38 MG/DL (7-18); BUN/CREATININE RATIO 39.2 (10.0-20.0); CALCIUM 7.8 MG/DL (8.5-10.1); CHLORIDE 97 MMOL/L (99-107); CREATININE 0.97 MG/DL (0.60-1.10); GLUCOSE 237 MG/DL (70-104); MAGNESIUM 2.1 MG/DL (1.5-2.4); POTASSIUM 4.1 MMOL/L (3.5-5.1); SODIUM 134 MMOL/L (135-145); TOTAL CARBON DIOXIDE 35.4 MMOL/L (24-32); eCRCL 69 ML/MIN; eGFR 73 ML/MIN
[2024-02-22 08:00] VITALS: RESP 18; O2SAT 97
[2024-02-22 08:17] LABS: PLATELET ESTIMATE NORMAL; TOTAL CELLS COUNTED 100
[2024-02-22 08:18] LABS: ANISOCYTOSIS 3+; HYPERSEGMENTED NEUTROPHILS FEW; POIKILOCYTOSIS FEW; POLYCHROMASIA FEW; STOMATOCYTES 1+
[2024-02-22] MEDS ORDERED: LEVO-65 PO (10:33)
[2024-02-22 11:00] VITALS: BP 113/62; PULSE 84; RESP 18; TEMP 97.8; O2SAT 97
[2024-02-22 15:00] VITALS: BP 94/59; PULSE 86; RESP 22; TEMP 98.2; O2SAT 93
[2024-02-22 15:08] VITALS: RESP 14
[2024-02-22] MEDS ORDERED: insulin glargine (Lantus) pen - multi-dose SQ SCH (21:00)
== END 2024-02-22 17:50 | disposition home health service (06) | DRG 177 ==
LOC: ER 18:56 → ED HOLD 21:37 → PCU 3S 02-18 05:16
PROVIDERS: ADMIT Internal Medicine Sleep Medicine; ATTEND Internal Medicine
PROC: XW033E5 Introduction of Remdesivir Anti-infective into Peripheral Vein, Percutaneous Approach, New Technology Group 5 (ICD-10-PCS; principal; 2024-02-17)
PROC: 5A09357 Assistance with Respiratory Ventilation, Less than 24 Consecutive Hours, Continuous Positive Airway Pressure (ICD-10-PCS; 2024-02-17)
DX: U07.1 COVID-19 (principal); I50.23 Acute on chronic systolic (congestive) heart failure; J96.01 Acute respiratory failure with hypoxia; J18.9 Pneumonia, unspecified organism; R65.11 Systemic inflammatory response syndrome (SIRS) of non-infectious origin with acute organ dysfunction; I69.354 Hemiplegia and hemiparesis following cerebral infarction affecting left non-dominant side; I11.0 Hypertensive heart disease with heart failure; D64.9 Anemia, unspecified; Z66 Do not resuscitate; E03.9 Hypothyroidism, unspecified; E78.00 Pure hypercholesterolemia, unspecified; E11.9 Type 2 diabetes mellitus without complications; E87.6 Hypokalemia; N40.0 Benign prostatic hyperplasia without lower urinary tract symptoms; I35.0 Nonrheumatic aortic (valve) stenosis; Z74.01 Bed confinement status; Z79.02 Long term (current) use of antithrombotics/antiplatelets; Z79.4 Long term (current) use of insulin; Z90.49 Acquired absence of other specified parts of digestive tract; Z89.421 Acquired absence of other right toe(s); Z79.899 Other long term (current) drug therapy; Z82.49 Family history of ischemic heart disease and other diseases of the circulatory system; Z83.3 Family history of diabetes mellitus; Z87.891 Personal history of nicotine dependence
CPT/HCPCS: 36415; 36600; 71045; 71250; 80048; 82803; 82948; 83735; 83880; 84484; 85007; 85018; 85025; 87081; 87502; 87503; 87811; 93005; 93308; 94640; 94660; 94760; 99285; A6212; A6213; A6223; A6250; A6253; A6446; A6449; A6590; C9113; G0378; J0456; J0696; J1100; J1650; J1815; J1940; J2270; J2405; J2930; J3490; J7030